=== PATIENT | female | born 1950 | race Caucasian/White ===

== ENCOUNTER → 2020-03-24 14:49 | Outpatient (CLI) | payer MEDICARE, SELFPAY ==
[2020-03-24 14:58] LABS: Basophils # 0.1 K/mm3 (0-0.2); Basophils % 0.7 % (0.1-2.0); Eosinophils # 0.8 K/mm3 (0.0-0.4); Eosinophils % 6.1 % (0.1-12.0); Hematocrit 40.8 % (37.0-47.0); Hemoglobin 13.4 g/dL (12.2-16.2); Lymphocytes # 5.7 K/mm3 (0.7-4.5); Lymphocytes % 42.2 % (10-50); Mean Corpuscular Hemoglobin 32.3 pg (27.0-31.2); Mean Corpuscular Volume 97.8 fl (81-99); Mean Platelet Volume 9.4 fl (7.4-10.4); Monocytes # 0.6 K/mm3 (0.1-1.0); Monocytes % 4.5 % (1.7-9.3); Neutrophils # 6.3 K/mm3 (1.8-7.8); Neutrophils % 46.4 % (37.0-80.0); Platelet Count 338 K/mm3 (142-424); Red Blood Count 4.17 M/mm3 (4.20-5.40); Red Cell Distribution Width 13.4 % (11.5-17.5); White Blood Count 13.6 K/mm3 (4.8-10.8)
[2020-03-24 15:06] LABS: Creatinine,Urine Random 125 mg/dL (Not Estab.)
[2020-03-24 15:11] LABS: Microalbumin/Creatinine Ratio 6.9
[2020-03-24 15:23] LABS: Hemoglobin A1C 7.6 % (4.0-6.0)
[2020-03-24 15:46] LABS: Alanine Aminotransferase 48 U/L (12-78); Albumin Level 4.4 g/dl (3.5-5.0); Albumin/Globulin Ratio 1.5 (1.1-1.8); Alkaline Phosphatase 117 U/L (38-126); Anion Gap 18.1 mEq/L (5-15); Aspartate Amino Transferase 65 U/L (14-36); Bilirubin,Total 0.4 mg/dl (0.2-1.3); Blood Urea Nitrogen 30 mg/dl (7-17); Calcium 10.8 mg/dl (8.4-10.2); Carbon Dioxide 27 mmol/L (22.0-30.0); Chloride 101 mmol/L (98-107); Chol/HDL Ratio 6.8 (1-3.5); Cholesterol 324 mg/dl (140-200); Estimated Glomerular Filt Rate 83 ml/min (>60); GFR (African American) 101 ML/MIN (>60); Glucose 152 mg/dl (74-100); HDL Cholesterol 48 mg/dl (40-60); Sodium 140 mmol/L (136-145); Total Protein,Serum 7.4 g/dl (6.3-8.2)
[2020-03-24 16:03] LABS: T4 (Thyroxine) 8.8 ug/dl (5.53-11.0)
[2020-03-24 16:25] LABS: Potassium 6.1 mmoL/L (3.5-5.1); Triglycerides 799 mg/dl (30-150)
== END ==
PROVIDERS: Visit Provider Family Medicine
DX: E11.9 Type 2 diabetes mellitus without complications (principal); E03.9 Hypothyroidism, unspecified; G89.29 Other chronic pain; M54.9 Dorsalgia, unspecified; M79.7 Fibromyalgia; Z79.84 Long term (current) use of oral hypoglycemic drugs
CPT/HCPCS: 80053; 80061; 82043; 82570; 83036; 84436; 84443; 85025

== ENCOUNTER → 2020-05-15 13:58 | Outpatient (CLI) | payer MEDICARE, SELFPAY ==
[2020-05-15 15:09] LABS: Chloride 92 mmol/L (98-107)
[2020-05-15 15:10] LABS: Potassium 5.2 mmoL/L (3.5-5.1); Sodium 138 mmol/L (136-145)
[2020-05-15 15:12] LABS: Blood Urea Nitrogen 31 mg/dl (7-17); Estimated Glomerular Filt Rate 62 ml/min (>60); GFR (African American) 75 ML/MIN (>60)
[2020-05-15 15:13] LABS: Alanine Aminotransferase 41 U/L (12-78); Albumin Level 4.4 g/dl (3.5-5.0); Albumin/Globulin Ratio 1.6 (1.1-1.8); Alkaline Phosphatase 63 U/L (38-126); Anion Gap 13.2 mEq/L (5-15); Aspartate Amino Transferase 43 U/L (14-36); Bilirubin,Total 0.4 mg/dl (0.2-1.3); Calcium 11.3 mg/dl (8.4-10.2); Carbon Dioxide 38 mmol/L (22.0-30.0); Chol/HDL Ratio 6.8 (1-3.5); Cholesterol 253 mg/dl (140-200); Globulin 2.8 g/dL (1.3-3.2); Glucose 170 mg/dl (74-100); HDL Cholesterol 37 mg/dl (40-60); Total Protein,Serum 7.2 g/dl (6.3-8.2)
[2020-05-15 15:24] LABS: Direct LDL Cholesterol 167.52 mg/dL (100-129)
[2020-05-15 15:36] LABS: Triglycerides 411 mg/dl (30-150)
== END ==
PROVIDERS: Visit Provider Family Medicine
DX: Z23 Encounter for immunization (principal); E03.9 Hypothyroidism, unspecified
CPT/HCPCS: 80053; 80061

== ENCOUNTER → 2020-07-31 17:51 | Outpatient (CLI) | payer MEDICARE, SELFPAY ==
[2020-07-31 19:03] LABS: Alanine Aminotransferase 46 U/L (12-78); Albumin Level 4.7 g/dl (3.5-5.0); Albumin/Globulin Ratio 1.7 (1.1-1.8); Alkaline Phosphatase 60 U/L (38-126); Aspartate Amino Transferase 49 U/L (14-36); Bilirubin,Total 0.4 mg/dl (0.2-1.3); Blood Urea Nitrogen 18 mg/dl (7-17); Carbon Dioxide 32 mmol/L (22.0-30.0); Chloride 98 mmol/L (98-107); Estimated Glomerular Filt Rate 62 ml/min (>60); GFR (African American) 75 ML/MIN (>60); Globulin 2.8 g/dL (1.3-3.2); Glucose 113 mg/dl (74-100); Sodium 139 mmol/L (136-145); Total Protein,Serum 7.5 g/dl (6.3-8.2)
[2020-07-31 19:06] LABS: Basophils # 0.1 K/mm3 (0-0.2); Basophils % 0.5 % (0.1-2.0); Eosinophils # 0.4 K/mm3 (0.0-0.4); Eosinophils % 3.6 % (0.1-12.0); Hematocrit 42.7 % (37.0-47.0); Hemoglobin 13.6 g/dL (12.2-16.2); Lymphocytes # 5.6 K/mm3 (0.7-4.5); Lymphocytes % 46.7 % (10-50); Mean Corpuscular HGB Conc 31.9 g/dL (31.8-35.4); Mean Corpuscular Hemoglobin 30.8 pg (27.0-31.2); Mean Corpuscular Volume 96.3 fl (81-99); Mean Platelet Volume 9.9 fl (7.4-10.4); Monocytes # 0.6 K/mm3 (0.1-1.0); Monocytes % 4.9 % (1.7-9.3); Neutrophils # 5.3 K/mm3 (1.8-7.8); Neutrophils % 44.4 % (37.0-80.0); Platelet Count 424 K/mm3 (142-424); Red Blood Count 4.43 M/mm3 (4.20-5.40); Red Cell Distribution Width 13.4 % (11.5-17.5)
[2020-07-31 19:16] LABS: Intact Parathyroid Hormone 13.8 pg/mL (7.5-53.5)
[2020-07-31 19:32] LABS: Hemoglobin A1C 7.8 % (4.0-6.0)
[2020-07-31 19:34] LABS: Thyroid Stimulating Hormone 2.36 uIU/mL (0.465-4.68)
[2020-08-01 11:03] LABS: Microalbumin/Creatinine Ratio 29.1
[2020-08-01 11:15] LABS: Creatinine,Urine Random 68 mg/dL (Not Estab.)
== END ==
PROVIDERS: Visit Provider Family Medicine
DX: E03.9 Hypothyroidism, unspecified (principal); E11.9 Type 2 diabetes mellitus without complications; I10 Essential (primary) hypertension; M79.7 Fibromyalgia; K43.2 Incisional hernia without obstruction or gangrene; Z79.84 Long term (current) use of oral hypoglycemic drugs
CPT/HCPCS: 80053; 82043; 82570; 83036; 83970; 84443; 85025

== ENCOUNTER → 2021-01-02 19:01 | Outpatient (CLI) | payer MEDICARE, SELFPAY ==
[2021-01-02 19:16] LABS: Chloride 96 mmol/L (98-107)
[2021-01-02 19:17] LABS: Potassium 4.1 mmoL/L (3.5-5.1); Sodium 139 mmol/L (136-145)
[2021-01-02 19:19] LABS: Alanine Aminotransferase 40 U/L (12-78); Aspartate Amino Transferase 60 U/L (14-36); Blood Urea Nitrogen 28 mg/dl (7-17); Estimated Glomerular Filt Rate 71 ml/min (>60); GFR (African American) 86 ML/MIN (>60)
[2021-01-02 19:20] LABS: Albumin/Globulin Ratio 1.9 (1.1-1.8); Alkaline Phosphatase 70 U/L (38-126); Anion Gap 16.1 mEq/L (5-15); Bilirubin,Total 0.5 mg/dl (0.2-1.3); Calcium 10.2 mg/dl (8.4-10.2); Carbon Dioxide 31 mmol/L (22.0-30.0); Globulin 2.6 g/dL (1.3-3.2); Glucose 116 mg/dl (74-100); Total Protein,Serum 7.6 g/dl (6.3-8.2)
[2021-01-02 19:52] LABS: Hemoglobin A1C 7.1 % (4.0-6.0)
== END ==
PROVIDERS: Visit Provider Family Medicine
DX: E11.9 Type 2 diabetes mellitus without complications (principal); Z79.84 Long term (current) use of oral hypoglycemic drugs
CPT/HCPCS: 80053; 83036

== ENCOUNTER → 2021-06-19 18:30 | Outpatient (CLI) | payer MEDICARE, SELFPAY ==
[2021-06-19 19:18] LABS: Basophils # 0.1 K/mm3 (0-0.2); Basophils % 0.8 % (0.1-2.0); Eosinophils # 0.4 K/mm3 (0.0-0.4); Eosinophils % 3.1 % (0.1-12.0); Hemoglobin 14.4 g/dL (12.2-16.2); Lymphocytes # 5.1 K/mm3 (0.7-4.5); Lymphocytes % 44.3 % (10-50); Mean Corpuscular Hemoglobin 30.7 pg (27.0-31.2); Mean Corpuscular Volume 95.8 fl (81-99); Mean Platelet Volume 10.2 fl (7.4-10.4); Monocytes # 0.5 K/mm3 (0.1-1.0); Monocytes % 4.3 % (1.7-9.3); Neutrophils # 5.5 K/mm3 (1.8-7.8); Neutrophils % 47.4 % (37.0-80.0); Platelet Count 558 K/mm3 (142-424); Red Cell Distribution Width 13.4 % (11.5-17.5); White Blood Count 11.6 K/mm3 (4.8-10.8)
[2021-06-19 19:47] LABS: Creatinine,Urine Random 152 mg/dL (Not Estab.)
[2021-06-19 19:50] LABS: Microalbumin/Creatinine Ratio 13.2
[2021-06-19 21:00] LABS: Alanine Aminotransferase 47 U/L (12-78); Albumin Level 4.9 g/dl (3.5-5.0); Albumin/Globulin Ratio 1.6 (1.1-1.8); Alkaline Phosphatase 64 U/L (38-126); Anion Gap 19.4 mEq/L (5-15); Aspartate Amino Transferase 71 U/L (14-36); Bilirubin,Total 0.4 mg/dl (0.2-1.3); Blood Urea Nitrogen 21 mg/dl (7-17); Calcium 10.9 mg/dl (8.4-10.2); Carbon Dioxide 31 mmol/L (22.0-30.0); Chloride 95 mmol/L (98-107); Estimated Glomerular Filt Rate 71 ml/min (>60); GFR (African American) 86 ML/MIN (>60); Glucose 92 mg/dl (74-100); Potassium 4.4 mmoL/L (3.5-5.1); Sodium 141 mmol/L (136-145); Total Protein,Serum 7.9 g/dl (6.3-8.2)
[2021-06-19 21:16] LABS: Hemoglobin A1C 7.2 % (4.0-6.0)
[2021-06-19 21:29] LABS: Thyroid Stimulating Hormone 1.99 uIU/mL (0.465-4.68)
== END ==
PROVIDERS: Visit Provider Family Medicine
DX: J32.9 Chronic sinusitis, unspecified (principal); N39.0 Urinary tract infection, site not specified; E11.9 Type 2 diabetes mellitus without complications; M79.7 Fibromyalgia; Z79.84 Long term (current) use of oral hypoglycemic drugs; B96.20 Unspecified Escherichia coli [E. coli] as the cause of diseases classified elsewhere
CPT/HCPCS: 80053; 82043; 82570; 83036; 84443; 85025; 87086; 87088; 87186

== ENCOUNTER → 2021-06-28 17:42 | Outpatient (CLI) | payer MEDICARE, SELFPAY ==
[2021-06-28 17:46] LABS: Microscopic, Urine URINE MICROSCOPIC (MICROSCOPIC)
[2021-06-28 19:44] LABS: Appearance,Urine CLEAR (Clear); Bilirubin,Urine Negative (Negative); Blood, Urine Negative (Negative); Color,Urine YELLOW (Yellow); Glucose,Urine (UA) 2+ (Negative); Ketones,Urine Negative (Negative); Leukocyte Esterase,Urine Negative (Negative); Nitrate,Urine Negative (Negative); Protein,Urine Negative (Negative); Specific Gravity, Urine 1.015 (1.005-1.030); Urobilinogen,Urine 0.2 EU/dl (0.2)
[2021-06-28 19:53] LABS: Squamous Epithelial Cell,Urine Occasional #/hpf (0-5); WBC,Urine Occasional #/hpf (0-3)
== END ==
PROVIDERS: Visit Provider Family Medicine
DX: N39.0 Urinary tract infection, site not specified (principal)
CPT/HCPCS: 81001

== ENCOUNTER → 2021-12-25 16:12 | Outpatient (CLI) | payer MEDICARE, SELFPAY ==
[2021-12-25 14:34] LABS: Hemoglobin A1C 8.4 % (4.0-6.0)
[2021-12-25 16:06] LABS: Chloride 97 mmol/L (98-107); Potassium 4.1 mmoL/L (3.5-5.1); Sodium 139 mmol/L (136-145)
[2021-12-25 16:08] LABS: Alanine Aminotransferase 43 U/L (12-78); Albumin Level 4.4 g/dl (3.5-5.0); Alkaline Phosphatase 62 U/L (38-126); Aspartate Amino Transferase 45 U/L (14-36); Bilirubin,Total 0.5 mg/dl (0.2-1.3); Blood Urea Nitrogen 26 mg/dl (7-17); Estimated Glomerular Filt Rate 71 ml/min (>60); GFR (African American) 86 ML/MIN (>60)
[2021-12-25 16:09] LABS: Albumin/Globulin Ratio 1.7 (1.1-1.8); Anion Gap 15.1 mEq/L (5-15); Calcium 10.3 mg/dl (8.4-10.2); Carbon Dioxide 31 mmol/L (22.0-30.0); Chol/HDL Ratio 5.6 (1-3.5); Cholesterol 231 mg/dl (140-200); Globulin 2.6 g/dL (1.3-3.2); Glucose 140 mg/dl (74-100); HDL Cholesterol 41 mg/dl (40-60); Triglycerides 238 mg/dl (30-150); VLDL Cholesterol 48 mg/dL (0-40)
[2021-12-25 16:20] LABS: Direct LDL Cholesterol 155.75 mg/dL (100-129)
[2021-12-25 16:40] LABS: Thyroid Stimulating Hormone 1.42 uIU/mL (0.465-4.68)
== END ==
PROVIDERS: PCP Family Medicine; Visit Provider Family Medicine
DX: E11.9 Type 2 diabetes mellitus without complications (principal); M79.89 Other specified soft tissue disorders; E03.9 Hypothyroidism, unspecified; M79.7 Fibromyalgia; Z79.84 Long term (current) use of oral hypoglycemic drugs
CPT/HCPCS: 80053; 80061; 83036; 84443

== ENCOUNTER → 2022-06-04 10:13 | Outpatient (CLI) | payer MEDICARE, SELFPAY ==
[2022-06-04 19:02] LABS: Basophils # 0.1 K/mm3 (0-0.2); Eosinophils # 0.3 K/mm3 (0.0-0.4); Eosinophils % 2.2 % (0.1-12.0); Hematocrit 37.2 % (37.0-47.0); Hemoglobin 12.2 g/dL (12.2-16.2); Lymphocytes # 5.9 K/mm3 (0.7-4.5); Lymphocytes % 44.1 % (10-50); Mean Corpuscular HGB Conc 32.9 g/dL (31.8-35.4); Mean Corpuscular Hemoglobin 29.8 pg (27.0-31.2); Mean Corpuscular Volume 90.5 fl (81-99); Mean Platelet Volume 9.2 fl (7.4-10.4); Monocytes # 0.6 K/mm3 (0.1-1.0); Monocytes % 4.8 % (1.7-9.3); Neutrophils # 6.4 K/mm3 (1.8-7.8); Neutrophils % 47.9 % (37.0-80.0); Platelet Count 633 K/mm3 (142-424); Red Blood Count 4.11 M/mm3 (4.20-5.40); Red Cell Distribution Width 15.7 % (11.5-17.5); White Blood Count 13.3 K/mm3 (4.8-10.8)
[2022-06-04 19:08] LABS: Creatinine,Urine Random 90 mg/dL (Not Estab.)
[2022-06-04 19:12] LABS: Microalbumin/Creatinine Ratio 29.1
[2022-06-04 19:13] LABS: Alanine Aminotransferase 19 U/L (12-78); Albumin Level 4.3 g/dl (3.5-5.0); Albumin/Globulin Ratio 1.3 (1.1-1.8); Alkaline Phosphatase 146 U/L (38-126); Anion Gap 20.2 mEq/L (5-15); Aspartate Amino Transferase 42 U/L (14-36); Bilirubin,Total 0.3 mg/dl (0.2-1.3); Blood Urea Nitrogen 38 mg/dl (7-17); Calcium 10.6 mg/dl (8.4-10.2); Carbon Dioxide 26 mmol/L (22.0-30.0); Chloride 94 mmol/L (98-107); Estimated Glomerular Filt Rate 55 ml/min (>60); GFR (African American) 66 ML/MIN (>60); Globulin 3.3 g/dL (1.3-3.2); Glucose 162 mg/dl (74-100); Magnesium 1.4 mg/dl (1.6-2.3); Potassium 5.2 mmoL/L (3.5-5.1); Sodium 135 mmol/L (136-145); Total Protein,Serum 7.6 g/dl (6.3-8.2)
== END ==
PROVIDERS: PCP Family Medicine; Visit Provider Family Medicine
DX: E11.69 Type 2 diabetes mellitus with other specified complication (principal); E83.42 Hypomagnesemia; Z79.84 Long term (current) use of oral hypoglycemic drugs
CPT/HCPCS: 80053; 82043; 82570; 83735; 85025

== ENCOUNTER → 2023-01-27 14:10 | Outpatient (CLI) | payer MEDICARE, SELFPAY ==
[2023-01-27 18:35] LABS: Alanine Aminotransferase 30 U/L (12-78); Albumin Level 4.6 g/dl (3.5-5.0); Albumin/Globulin Ratio 1.5 (1.1-1.8); Alkaline Phosphatase 103 U/L (38-126); Anion Gap 19.1 mEq/L (5-15); Aspartate Amino Transferase 46 U/L (14-36); Bilirubin,Total 0.3 mg/dl (0.2-1.3); Blood Urea Nitrogen 21 mg/dl (7-17); Calcium 10.5 mg/dl (8.4-10.2); Carbon Dioxide 30 mmol/L (22.0-30.0); Chloride 100 mmol/L (98-107); Chol/HDL Ratio 3.6 (1-3.5); Cholesterol 192 mg/dl (140-200); Estimated Glomerular Filt Rate 71 ml/min (>60); GFR (African American) 86 ML/MIN (>60); Glucose 133 mg/dl (74-100); HDL Cholesterol 54 mg/dl (40-60); Sodium 143 mmol/L (136-145); Total Protein,Serum 7.6 g/dl (6.3-8.2); Triglycerides 301 mg/dl (30-150); VLDL Cholesterol 60 mg/dL (0-40)
[2023-01-27 18:57] LABS: Hemoglobin A1C 8.6 % (4.0-6.0)
[2023-01-27 19:02] LABS: Basophils # 0.1 K/mm3 (0-0.2); Basophils % 0.6 % (0.1-2.0); Eosinophils # 0.2 K/mm3 (0.0-0.4); Eosinophils % 2.5 % (0.1-12.0); Hematocrit 47.6 % (37.0-47.0); Hemoglobin 14.9 g/dL (12.2-16.2); Lymphocytes # 4.4 K/mm3 (0.7-4.5); Lymphocytes % 44.6 % (10-50); Mean Corpuscular HGB Conc 31.3 g/dL (31.8-35.4); Mean Corpuscular Hemoglobin 29.1 pg (27.0-31.2); Mean Platelet Volume 9.8 fl (7.4-10.4); Monocytes # 0.5 K/mm3 (0.1-1.0); Monocytes % 4.5 % (1.7-9.3); Neutrophils # 4.8 K/mm3 (1.8-7.8); Neutrophils % 47.9 % (37.0-80.0); Platelet Count 357 K/mm3 (142-424); Red Blood Count 5.12 M/mm3 (4.20-5.40); Red Cell Distribution Width 13.3 % (11.5-17.5); White Blood Count 9.9 K/mm3 (4.8-10.8)
[2023-01-27 19:05] LABS: Thyroid Stimulating Hormone 0.77 uIU/mL (0.465-4.68)
[2023-01-27 19:32] LABS: Potassium 6.1 mmoL/L (3.5-5.1)
== END ==
PROVIDERS: PCP Family Medicine; Visit Provider Family Medicine
DX: Z85.43 Personal history of malignant neoplasm of ovary (principal); Z00.00 Encounter for general adult medical examination without abnormal findings; E11.69 Type 2 diabetes mellitus with other specified complication
CPT/HCPCS: 80053; 80061; 83036; 84443; 85025

== ENCOUNTER → 2023-05-22 23:27 | Outpatient (CLI) | payer MEDICARE, SELFPAY ==
[2023-05-22 18:30] LABS: Basophils # 0.1 K/mm3 (0-0.2); Basophils % 0.9 % (0.1-2.0); Eosinophils # 0.3 K/mm3 (0.0-0.4); Eosinophils % 2.3 % (0.1-12.0); Hematocrit 44.8 % (37.0-47.0); Hemoglobin 15.2 g/dL (12.2-16.2); Lymphocytes # 5.6 K/mm3 (0.7-4.5); Lymphocytes % 50.6 % (10-50); Mean Corpuscular HGB Conc 33.9 g/dL (31.8-35.4); Mean Corpuscular Hemoglobin 31.8 pg (27.0-31.2); Mean Corpuscular Volume 93.8 fl (81-99); Mean Platelet Volume 9.9 fl (7.4-10.4); Monocytes # 0.5 K/mm3 (0.1-1.0); Monocytes % 4.4 % (1.7-9.3); Neutrophils # 4.6 K/mm3 (1.8-7.8); Neutrophils % 41.8 % (37.0-80.0); Platelet Count 351 K/mm3 (142-424); Red Blood Count 4.78 M/mm3 (4.20-5.40); Red Cell Distribution Width 13.1 % (11.5-17.5)
[2023-05-22 18:34] LABS: Alanine Aminotransferase 26 U/L (12-78); Albumin Level 4.8 g/dl (3.5-5.0); Albumin/Globulin Ratio 1.5 (1.1-1.8); Alkaline Phosphatase 90 U/L (38-126); Anion Gap 16.8 mEq/L (5-15); Aspartate Amino Transferase 35 U/L (14-36); Bilirubin,Total 0.3 mg/dl (0.2-1.3); Blood Urea Nitrogen 34 mg/dl (7-17); Calcium 10.8 mg/dl (8.4-10.2); Carbon Dioxide 29 mmol/L (22.0-30.0); Chloride 99 mmol/L (98-107); Estimated Glomerular Filt Rate 71 ml/min (>60); GFR (African American) 86 ML/MIN (>60); Globulin 3.2 g/dL (1.3-3.2); Glucose 165 mg/dl (74-100); Potassium 4.8 mmoL/L (3.5-5.1); Sodium 140 mmol/L (136-145)
[2023-05-22 18:51] LABS: MANUAL DIFFERENTIAL MANUAL DIFFERENTIAL (MANUAL DIFF)
[2023-05-22 19:15] LABS: Lymphocytes % 53 % (10-50); Monocytes % 5 % (2-9); Neutrophils % 40 % (42-76); Total Cells Counted 100
[2023-05-22 19:16] LABS: Platelet Estimate Normal; RBC Morphology Normal
== END ==
PROVIDERS: PCP Family Medicine; Visit Provider Family Medicine
DX: E11.69 Type 2 diabetes mellitus with other specified complication; Z85.43 Personal history of malignant neoplasm of ovary
CPT/HCPCS: 80053; 84443; 85007; 85025

== ENCOUNTER 2023-09-11 23:03 | Outpatient (CLI) | payer MEDICARE, SELFPAY ==
[2023-09-11 19:02] LABS: Basophils # 0.1 K/mm3 (0-0.2); Basophils % 0.7 % (0.1-2.0); Eosinophils # 0.3 K/mm3 (0.0-0.4); Eosinophils % 2.7 % (0.1-12.0); Hematocrit 44.2 % (37.0-47.0); Hemoglobin 14.5 g/dL (12.2-16.2); Lymphocytes # 5.1 K/mm3 (0.7-4.5); Mean Corpuscular HGB Conc 32.7 g/dL (31.8-35.4); Mean Corpuscular Volume 94.6 fl (81-99); Mean Platelet Volume 9.6 fl (7.4-10.4); Monocytes # 0.4 K/mm3 (0.1-1.0); Monocytes % 3.7 % (1.7-9.3); Neutrophils # 5.9 K/mm3 (1.8-7.8); Neutrophils % 49.9 % (37.0-80.0); Platelet Count 315 K/mm3 (142-424); Red Blood Count 4.67 M/mm3 (4.20-5.40); Red Cell Distribution Width 13.1 % (11.5-17.5); White Blood Count 11.9 K/mm3 (4.8-10.8)
[2023-09-11 19:48] LABS: Alanine Aminotransferase 25 U/L (12-78); Albumin Level 4.1 g/dl (3.5-5.0); Albumin/Globulin Ratio 1.7 (1.1-1.8); Alkaline Phosphatase 72 U/L (38-126); Anion Gap 9.5 mEq/L (5-15); Aspartate Amino Transferase 27 U/L (14-36); Bilirubin,Total 0.3 mg/dl (0.2-1.3); Blood Urea Nitrogen 22 mg/dl (7-17); Carbon Dioxide 30 mmol/L (22.0-30.0); Chloride 104 mmol/L (98-107); Estimated Glomerular Filt Rate 62 ml/min (>60); GFR (African American) 75 ML/MIN (>60); Globulin 2.4 g/dL (1.3-3.2); Glucose 120 mg/dl (74-100); Potassium 4.5 mmoL/L (3.5-5.1); Sodium 139 mmol/L (136-145); Total Protein,Serum 6.5 g/dl (6.3-8.2)
[2023-09-11 20:15] LABS: Thyroid Stimulating Hormone 1.56 uIU/mL (0.465-4.68)
[2023-09-11 20:20] LABS: Hemoglobin A1C 7.8 % (4.0-6.0)
== END 2023-09-11 23:59 ==
LOC: LAB.DROPOF 23:04
PROVIDERS: PCP Family Medicine; Visit Provider Family Medicine
DX: E11.9 Type 2 diabetes mellitus without complications (principal); K43.2 Incisional hernia without obstruction or gangrene; Z79.84 Long term (current) use of oral hypoglycemic drugs; Z79.85 Long-term (current) use of injectable non-insulin antidiabetic drugs
CPT/HCPCS: 80053; 83036; 84443; 85025

== ENCOUNTER 2023-12-10 09:18 | Outpatient (CLI) | payer MEDICARE, SELFPAY ==
[2023-12-10 19:19] LABS: Basophils # 0.1 K/mm3 (0-0.2); Basophils % 0.5 % (0.1-2.0); Eosinophils # 0.1 K/mm3 (0.0-0.4); Eosinophils % 0.3 % (0.1-12.0); Hematocrit 44.7 % (37.0-47.0); Hemoglobin 14.2 g/dL (12.2-16.2); Lymphocytes # 2.3 K/mm3 (0.7-4.5); Lymphocytes % 14.5 % (10-50); Mean Corpuscular HGB Conc 31.7 g/dL (31.8-35.4); Mean Corpuscular Hemoglobin 30.7 pg (27.0-31.2); Mean Corpuscular Volume 96.8 fl (81-99); Mean Platelet Volume 10.8 fl (7.4-10.4); Monocytes # 0.4 K/mm3 (0.1-1.0); Monocytes % 2.5 % (1.7-9.3); Neutrophils # 12.9 K/mm3 (1.8-7.8); Neutrophils % 82.1 % (37.0-80.0); Platelet Count 361 K/mm3 (142-424); Red Blood Count 4.62 M/mm3 (4.20-5.40); Red Cell Distribution Width 13.2 % (11.5-17.5); White Blood Count 15.7 K/mm3 (4.8-10.8)
[2023-12-10 19:20] LABS: MANUAL DIFFERENTIAL MANUAL DIFFERENTIAL (MANUAL DIFF)
[2023-12-10 19:35] LABS: Alanine Aminotransferase 31 U/L (12-78); Albumin Level 4.8 g/dl (3.5-5.0); Albumin/Globulin Ratio 1.8 (1.1-1.8); Alkaline Phosphatase 74 U/L (38-126); Anion Gap 14.8 mEq/L (5-15); Aspartate Amino Transferase 31 U/L (14-36); Bilirubin,Total 0.4 mg/dl (0.2-1.3); Blood Urea Nitrogen 31 mg/dl (7-17); Calcium 10.7 mg/dl (8.4-10.2); Carbon Dioxide 27 mmol/L (22.0-30.0); Chloride 101 mmol/L (98-107); Estimated Glomerular Filt Rate 82 ml/min (>60); GFR (African American) 100 ML/MIN (>60); Globulin 2.6 g/dL (1.3-3.2); Glucose 221 mg/dl (74-100); Potassium 4.8 mmoL/L (3.5-5.1); Sodium 138 mmol/L (136-145); Total Protein,Serum 7.4 g/dl (6.3-8.2)
[2023-12-10 20:03] LABS: Thyroid Stimulating Hormone 0.28 uIU/mL (0.465-4.68)
[2023-12-10 20:20] LABS: Hemoglobin A1C 8.7 % (4.0-6.0)
[2023-12-10 20:27] LABS: Lymphocytes % 16 % (10-50); Monocytes % 4 % (2-9); Neutrophils % 80 % (42-76); Platelet Estimate Normal; RBC Morphology Normal; Total Cells Counted 100
== END 2023-12-10 23:59 | disposition home or self-care (01) ==
LOC: LAB.DROPOF 12-11 09:18
PROVIDERS: PCP Family Medicine; Visit Provider Family Medicine
DX: E11.69 Type 2 diabetes mellitus with other specified complication (principal); E11.9 Type 2 diabetes mellitus without complications; E03.9 Hypothyroidism, unspecified; Z79.84 Long term (current) use of oral hypoglycemic drugs; Z79.899 Other long term (current) drug therapy
CPT/HCPCS: 80053; 83036; 84443; 85007; 85025

== ENCOUNTER 2024-02-18 16:07 | Outpatient (CLI) | payer MEDICARE, SELFPAY ==
[2024-02-18 18:39] LABS: Hemoglobin A1C 8.2 % (4.0-6.0)
== END 2024-02-18 23:59 | disposition home or self-care (01) ==
LOC: LAB.DROPOF 02-19 09:16
PROVIDERS: PCP Family Medicine; Visit Provider Family Medicine
DX: E11.9 Type 2 diabetes mellitus without complications (principal); Z79.84 Long term (current) use of oral hypoglycemic drugs
CPT/HCPCS: 83036

== ENCOUNTER 2025-01-17 18:36 | Outpatient (CLI) | payer MEDICARE, SELFPAY ==
--- OUTSIDE RECORDS SUMMARY | 2019-09-13 05:30 | XMS_ITS | Continuity of Care Document ---
Author Organization [facility] o Address [address] [place] [address] Phone Care Team Providers Care Shovel Operator Name Role Phone Sarah JARAMILLO, Frans[place] Unavailable Unavailabl e Procedures Procedure Date Office/outpatient visit,[facility] 2019 X-ray exam lower spine 2-3 views 2019 Advance Directives Directive Yes / No Effective Date File Name No Information Encounters Encounter Description Practice Location Reason(s) For Visit Diagnoses Date Provider Providers Copied on Encounter Office/outpat ient visit,[facility] [place], [address] [place], [address], tel:[phone] [facility] No Information 0 Sarah Moody. [address] [place], [address], . tel:[phone] Specialist : Jamal Mabry MD, [address] [place] [address], [place], [address] . tel:[phone] Family History Family Member Type Diagnosis Age At Onset No Information Payers Payer name Insurance type Covered republican ID Authoriza tion(s) Hum[employer] Medicare - [id number] Social History Type Description Quantity Date Captured Comments Sex Female Smoking Status No Information Chief Complaint And Reason For Visit No Information Reason For Referral Reason For Referral No Information History Of Present Illness Encounter Date Complaint History Of Prese nt Illness No Information Functional Status Date Functional Assessmen t No Information Instructions Date Instruction Additional Infor mation No Information Assessments Type Assessment Date No Information Patient Care Teams Name Effective Dates (start - stop) Status Members No Information
--- OUTSIDE RECORDS SUMMARY | 2025-01-05 11:00 | XMS_ITS | Encounter Summary ---
Author Organization [facility] Address [address] [place] [address] Care Team Providers Care Prototype Machinist Name Role Phone Jamal Mabry MD Primary Care Provider Vignesh Sharma MD Unavailable [phone] Shama Buckley MD Unavailable [phone] Reason for Visit * Reason Comments Injections Depo 120 Rt side Encounter Details Date Type Department Care Team (Latest Contact Info) Description 01/05/2025 11:00 AM EDT Office Visit [facility] [address] [place] [address] Matilda Guadalupe MA Osteoarthritis of multiple joints, [...] Description 03/07/2025 2:40 PM EDT Office Visit [facility] [address] [place] [address] Shama Buckley MD [address] [place] [address] 03/31/2025 2:00 PM EDT Office Visit [facility] Nephrology [place] [address] [place] [address] Vignesh Sharma MD [address] [address] documented as of this encounter Visit Diagnoses [...] documented as of this encounter Care Teams Prototype Machinist Relationship Specialty Start Date End Date Jamal Mabry MD PCP - General 06/18/10 Vignesh Sharma MD [address] [address] Consulting Physician Internal Medicine-Nephrology 04/09/22 [place] [address] [place] [phone] Internal Medicine-Rheumatology 02/20/23 documented as of this encounter
--- OUTSIDE RECORDS SUMMARY | 2025-01-17 18:39 | XMS_ITS | Clinical Summary ---
Author Organization [facility] Address [address] [facility] [address] [place] [address] Phone Care Team Providers Care Emergency Specialist Name Role Phone Carlyn JARAMILLO, [facility] Conditions or Problems Problem Name Problem Code Onset Date Status Entry Date Provider Comment Standard Description Annotate FOLLOW-UP EXAMINATION FOLLOWING OTHER SURGERY Z09 (ICD-10-CM) 10/13 Active 10/13 Marietta Hale MA Encounter for follow-up examination after completed treatment for conditions other than malignant neoplasm LUMBAR RADICULOPATHY 315249036 (SNOMED CT) 09/06 Active 09/06 Alta Rodriguez MA Lumbar radiculopathy Medications Medication Instructions Start Date Stop Date Generic Name [facility] Provider HIBICLENS 4 % EXTERNAL LIQUID Wash the lower back and right buttock area the night prior to the surgery CHLORHEXIDINE GLUCONATE [id number] Wild Alcocer MD ADULT ASPIRIN LOW STRENGTH 81 MG ORAL TABLET DISINTEGRATING 1 daily Non-Sanchez ASPIRIN [id number] Alta Rodriguez MA SYNTHROID 50 MCG TABS 1 daily Non-Sanchez LEVOTHYROXINE SODIUM [id number] Alta Rodriguez MA FOLIC ACID 1 MG TABS 1 bid Non-Sanchez FOLIC ACID [id number] Alta Rodriguez MA PROTONIX 40 MG TBEC 1 daily Non-Sanchez PANTOPRAZOLE SODIUM [id number] Alta Rodriguez MA GEMFIBROZIL 600 MG TABS 1 bid Non-Sanchez GEMFIBROZIL [id number] Alta Rodriguez MA METOPROLOL TARTRATE 100 MG TABS 1 daily Non-Sanchez METOPROLOL TARTRATE [id number] Alta Rodriguez MA NORVASC 10 MG TABS 1 daily Non-Sanchez AMLODIPINE BESYLATE [id number] Alta Rodriguez MA METHOTREXATE 2.5 MG ORAL TABLET 1 per week -Sanchez METHOTREXATE SODIUM [id number] Alta Rodriguez MA GABAPENTIN 800 MG TABS 1 qid -Sanchez GABAPENTIN [id number] Alta Rodriguez MA TIZANIDINE HCL 2 MG TABS 1 tid -Sanchez TIZANIDINE HCL [id number] Alta Rodriguez MA CYMBALTA 60 MG CPEP 1 bid -Sanchez DULOXETINE HCL 86646084076 Alta Rodriguez MA CELEBREX 200 MG CAPS 1 daily -Sanchez CELECOXIB [id number] Alta Rodriguez MA ENDOCET 10-325 MG TABS 1 qid -Sanchez OXYCODONE-ACETAM INOPHEN [id number] Alta Rodriguez MA Medications Administered No information available. Allergies, Adverse Reactions, Alerts Allergy Name Reaction Description Start Date Severity Statu s Provider IBUPROFEN Critical Alta Coburn mons MA DOXYCYCLINE Critical Alta S immons MA ZITHROMAX Critical Alta Coburn mons MA VIBRAMYCIN Critical Alta Si mmons MA KEFLEX Critical Alta Coburn mons MA CEPHALEXIN Critical Alta Si mmons MA PENICILLIN Critical Alta Si mmons MA Results No information available. Plan of Care Type Date Detail Pending order X-Ray Thoracic A P & Lateral Procedures No information available. Vital Signs Date Name Value Unit Description BMI (Body Mass Index) 31.82 kg/m2 Bod y Mass Index (Ratio) BP Diastolic 74 mm[Hg] blood pressu re, diastolic BP Systolic 126 mm[Hg] blood pressur e, systolic Height 62 [in_us] height E&M Weight Measured 174 [lb_av] weight E& M Weight Measured 174 [lb_av] weight E& M Immunizations No information available. Advance Directives No information available.
--- OUTSIDE RECORDS SUMMARY | 2025-01-17 18:39 | XMS_ITS | Encounter Summary ---
Author Organization [place] [address] Care Team Providers Care Rug Repairer Name Role Phone Jamal Mabry MD Primary Care Provider Vignesh Sharma MD Unavailable [phone] Shama Buckley MD Unavailable [phone] Encounter Details Date Type Department Care Team (Late Contact Info) Description 08/13/2017 Orders Only [facility] [address] [facility] [address] [place] [address] Raymond Ortiz MD [address] [place] [address] Social History Tobacco Use Types Packs/Day Years Used Date Smoking Tobacco: Never Smokeless Tobacco: Never Alcohol Use Standard Drinks/Week Comments No 0 (1 standard drink = 0.6 oz pur e alcohol) Sexually Active Control Partners Comments Never Surgical [...] on file documented as of this encounter Plan of Treatment Upcoming Encounters Date Type Department Care Team (Late Contact Info) Description 03/07/2025 2:40 PM EDT Office [facility] [address] [place] [address] Shama Buckley MD [address] [place] [address] 03/31/2025 2:00 PM EDT Office Visit [facility] Nephrology [place] [address] [facility] [place] [address] Vignesh Sharma MD [address] [facility] [address] [place] [address] documented as of this encounter Procedures Procedure Name Priority Date/Time Associated Diagnosis Comments GMED COLONOSCOPY Routine 08/13/2017 11:0 0 AM EST documented in this encounter Results * GMED COLONOSCOPY (08/13/2017 11:00 AM EST) 08/13/2017 11:0 0 AM EST Impressions [facility] - 08/13/2017 11:17 AM EST Grade 2 internal hemorrhoids. Plan: Screening Colonoscopy in 10 years. This section is an excerpt of the full report. us Raymond Ortiz MD GI PROCEDURE ORDERABLES Fin al Result [facility] [address] [place] [address] documented in this encounter Visit Diagnoses Not on filedocumented in this encounter Additional Health Concerns Infection Onset Date Last Indicated Resolved Time R/O COVID-19 04/25/2022 04/25/2022 04/25/2022 9:51 AM EDT R/O COVID-19 05/17/2022 05/17/2022 05/17/2022 11:2 5 PM EDT documented as of this encounter Care Teams Rug Repairer Relationship Specialty Start Date End Date Jamal Mabry MD PCP - General 06/18/10 Vignesh Sharma MD [address] [facility] [address] [place] [address] Consulting Physician Internal Medicine-Nephrology 04/09/22 Shama Buckley MD [address] [place] [address] Internal Medicine-Rheumatology 02/20/23 documented as of this encounter
--- OUTSIDE RECORDS SUMMARY | 2025-01-17 18:40 | XMS_ITS | Referral Summary ---
Author Organization [facility] Address [address] [place] [address] [place] [address] Care Team Providers Care Machine Printer Hose Name Role Phone Unavailable Primary Care Provider Unavailabl e Social History Tobacco Use Types Packs/Day Years Used Date Smoking Tobacco: Never Assessed Comments Unknown Sex and Gender Information Value Date Recorded Sex Assigned at Not on file Legal Sex Female 10:28 PM EDT Gender Identity Not on file Sexual Orientation Not on file Plan of Treatment Not on file
--- OUTSIDE RECORDS SUMMARY | 2025-01-17 18:40 | XMS_ITS | Encounter Summary ---
Author Organization [facility] Address [address] [place] [address] Care Team Providers Care Coppersmith Apprentice Name Role Phone Jamal Mabry MD Primary Care Provider [phone] Vignesh Sharma MD Unavailable [phone] Shama Buckley MD Unavailable [phone] Reason for Visit * Reason Onset Date Comments Medication Refill 11/30/2024 Duloxetine 60m g Encounter Details Date Type Department Care Team (Late st Contact Info) Description 11/30/2024 Telephone [facility] [address] [place] [address] Carmela Kendrick MA Medication Refill (Duloxetine 60mg) Social History Tobacco Use Types Packs/Day Years [...] Date Author No 05/18/2022 4:00 PM EDT Shanae Denson RN documented in this encounter Ordered Prescriptions Prescription Sig Dispense Quantity Refills Last Filled Start Date End Date DULoxetine (CYMBALTA) 60 mg Oral Capsule, Delayed Release(E.C.)Indic ations:Fibromyalgi a,Postlaminectomy syndrome, lumbar region Take 1 Capsule by mouth 2 times daily. 180 Capsule 12/07/2024 documented in this encounter Miscellaneous Notes * Addendum Note - Carmela Kendrick MA - 12/07/2024 1:57 PM EDTAddended by: CARMELA KENDRICK on: 12/07/2024 01:57 PM Modules accepted: Orders * Telephone Encounter - Carmela Kendrick MA - 12/07/2024 1:55 PM EDT Pharmacy called and LVM for clinic requesting a refill of Duloxetine 60mg 1 PO BID. Previous requests declined as patient had appt 12/06/24 - patient cancelled 12/06/24 appt Notes from 06/07/25 appt state: continue Cymbalta 60 mg bid Medication refilled for 90 days - patient needs to keep February appt * Telephone Encounter - Carmela Kendrick MA - 11/30/2024 2:55 PM EDTSummary: Duloxetine 60mg declined - will refill @ appt Received paper fax request for Duloxetine 60mg Last refill 06/07/24 for 6 months - supply to last until 12/06/24 Patient has appt 12/06/24 - will refill @ appt. Medication declined documented in this encounter Plan of Treatment Upcoming Encounters Date Type Department Care Team (Late st Contact Info) Description 03/07/2025 2:40 PM EDT Office [facility] [address] [place] [address] Shama Buckley MD [address] [place] [address] 03/31/2025 2:00 PM EDT Office Visit [facility] Nephrology [place] [address] [facility] [place] [address] Vignesh Sharma MD [address] [address] documented as of this encounter Visit Diagnoses Diagnosis Fibromyalgia Mylagia and myositis, unspecified Postlaminectomy syndrome, lumbar region documented in this encounter Discontinued Medications Medication Sig Discontinue Reason Start Date End Da te DULoxetine (CYMBALTA) 60 mg Oral Capsule, Delayed Release(E.C.)Indications :Fibromyalgia,Postlamine ctomy syndrome, lumbar region Take 1 Capsule by mouth 2 times daily. Reorder 06/07/2024 12/07/2024 documented as of this encounter Additional Health Concerns Assessment Noted Time A fall risk assessment has been complete d for the patient 06/11/2022 10:35 AM EDT documented as of this encounter Care Teams Coppersmith Apprentice Relationship Specialty Start Date End Date Jamal Mabry MD PCP - General 06/18/10 Vignesh Sharma MD [address] [address] Consulting Physician Internal Medicine-Nephrology 04/09/22 Shama Buckley MD [address] [place] [address] Internal Medicine-Rheumatology 02/20/23 documented as of this encounter
--- OUTSIDE RECORDS SUMMARY | 2025-01-17 18:40 | XMS_ITS ---
Author Organization [facility] Address [address] [place] [address] Care Team Providers Care Engineer Byproduct Name Role Phone Jamal Mabry MD Primary Care Provider [phone] Active Problems Problem Noted Date Diagnosed Date DVT (deep venous thrombosis) 03/27/2015 Overview (05/15/2015): 03/28/15 doppler Right: Evidence for acute, occluding DVT is seen in one of the paired right posterior tibial veins. Evidence for acute, non-occluding DVT is seen in the right popliteal vein. Evidence for acute, occluding SVT is seen in a vessel in the lateral, distal calf. No evidence for DVT/SVT in remaining right lower extremity. Malignant neoplasm of both ovaries 03/14/2015 Cancer Staging:Clinical:FIGO Stage IIIB- Signed by Radha Owen CNP on 05/18/2018 Pathologic: Unsigned Overview (11/20/2018): Peritoneal Carcinomatosis * Hx of cervical cancer at age 29 found during prompted a partial hysterectomy. -(02/2015) Increasing abdominal girth prompted office visit -(03/13/15) CT A/P: Moderate ascites. Peritoneal carcinomatosis & diffuse omental caking, consistent w/metastatic disease, of unknown primary (Largest L pericolic gutter 3.2 x 1.6 cm) . Fatty, enlarged liver (22 cm). Distention of the gallbladder (10 x 5 cm). Hysterectomy. 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 -(03/28/15) In office paracentesis -Path: Peritoneal Fluid: POSITIVE FOR MALIGNANCY. Metastatic adenocarcinoma. The peritoenal fluid is cellular and contains numerous clusters of glandular cells consistent with metastatic adenocarcinoma. Immunostains were performed to ascertain the site of origin. The tumor cells are positive for cytokeratin (CK) 7, galectin-3 and PAX-8. They are negative for CK20, GATA3, mammaglobin, GCDFP, TTF-1, Napsin, and CDX2. The immunostains support a primary ovarian adenocarcinoma. -(03/28/15) BLE dopplers: Acute occluding DVT in one of paired Rt PTV.Acute non-occluding DVT in Rt Pop v.Acute occluding SVT in lateral distal calf. (pt started on lovenox) -(04/05/15) Initiated C1 of Carbo/Taxol AUC=6; CA 125: 4932.5 -(04/20/15) Port placement -(04/24/15) CA 125: 1633.2 -(04/27/15) Port removal d/t dehiscence/infection. -(05/03/15) CA 125: 456.2 -(05/10/15)-Genetics Referral: Appt. Pending. -(05/15/15) CA 125: 95.7 -(06/06/15) CA 125: 20.1 -(07/11/15) COMPLETE INTRA-ABDOMINAL CYTOREDUCTION; BILATERAL SALPINGO- OOPHORECTOMY, OMENTECTOMY, STAGING WITH LYMPH NODE DISSECTION, DEBULKING-infra and gastric colic omentum, resection: Omental fibroadipose tissue with metastatic high-grade serous carcinoma. Bilateral adnexa, resection: Bilateral atrophic ovaries with few benign simple inclusion cysts.Bilateral benign fallopian tubes with few benign paratubal cysts.Negative for malignancy. Pelvic peritoneum, stripping: Fragment of ovary with invasive high-grade serous carcinoma (3 x 2mm). Fibromuscular adipose tissue with metastatic high-grade serous carcinoma. Bowel nodule, biopsy: Fibrotic nodule with calcifications suggestive of therapy related changes. No viable malignant cells identified. Lymph Nodes Negative -(07/24/15) Resume Carbo/Taxol on 08/07/15-Cycle 4. Plan is for 2-3 more cycles -(08/07/15) Chemo changed to Taxotere due to worsening neuropathy -(08/29/15) Tx Held due to low platlets -(08/29/15) CA 125: 15.1 -(09/04/15) TX held due to low platelets RTC 1 wk CA 125: 14.3 -(09/11/15) Completed C6 of Carbo/Taxol (Docetaxel for cycles 5 and 6) CA 125: 14.0 -(11/20/15) CA 125: 11.7 -(02/19/16) CA 125: 14.0 -( CT A/p-No acute abnormalities are identified in the abdomen or pelvis. Complex periumbilical hernia, mildy increased in size, no containing a couple separate loops of small bowel. No visible complications as bowel obstruction. Several small to moderate size fat only containing ventral midline supraumbilical hernias. Hysterectomy as before. Interval decrease in size of the cystic mass of the right adnexa now measuring 5.0 cm in the larges dimension. Interval decrease in size is consistent with a benign process. Fatty, enlarged liver, stable. -(05/27/16) CA 125: 15.5 -(06/11/16) CT A/P- 3.5 cm low-density lesion along the right external iliac vessels is likely postsurgical. Otherwise, no evidence of intra-abdominal or intrapelvic metastatic disease. -(08/19/16) CA 125: 11.7 -(09/30/16) CA 125: 15.8 -(12/30/16) CA 125: 15.0 -(04/21/17) CA 125: 10.7 -(07/21/17) CA 125: 14.2 -(08/13/17) Colonoscopy: Protruding lesions, medium grade 2 internal hemorrhoids were noted. Patient has ventral hernias, which make colonoscopy somewhat difficult. She has seen some rectal bleeding, which was likely hemorrhoidal. No polyps seen. No treatment needed. -(09/25/17) MMG: Negative -(10/20/17) CA 125: 14.5 01/26/18: CA 125: 14.2 05/18/18 CA 125: 16.0 *Disposition: RTC 6 months w/CA 125 prior. Bronchitis 04/28/2007 Overview (05/11/2015): ICD-10 Transition Candidiasis of vulva and vagina 04/24/2007 Encounter for routine gynecological examination 04/24/2007 Overview (05/11/2015): ICD-10 Transition Allergic rhinitis 04/23/2007 Overview (05/11/2015): ICD-10 Transition Other and unspecified hyperlipidemia 04/23/2007 Essential hypertension 04/23/2007 Overview (05/11/2015): ICD-10 Transition Displacement of lumbar inter vertebral disc without myelopathy 04/23/2007 Overview (11/29/2011): s/p surgical repair Dr Johnson 02/14 Postmenopausal atrophic vaginitis 02/17/2007 Cystocele, midline 04/07/2006 Urinary incontinence 04/07/2006 Overview (05/11/2015): ICD-10 Transition Personal history of other ge nital system and obstetric disorders(V13.29) 04/07/2006 Current Treatment and Therapy Plans No current plan information found. Past Treatment and Therapy Plans ONCOLOGY TREATMENT Plan Name Start Date Discontinue Date Treatment Medications Discontinue Reason Plan Provider Cycles OP Crime Prevention Worker CARBOplatin AUC 5 / DOCEtaxel 04/05/20 15 07/21/2017 CARBOplatin (PARAPLATIN) chemo infusion (by AUC)DOCEtaxel ([id number]) chemo infusionDOCEtaxel (TAXOTERE)DOCEtaxeL (TAXOTERE) SolnPACLItaxel (TAXOL) chemo infusion Therapy Complete Bjorn Walker MD 6 of 6 cycles started Resolved Problems Problem Noted Date Diagnosed Date Resolved Date Ovarian cancer 07/11/2015 05/15/2018 Dehiscence of operative wound 05/03/2015 05/15/2018 Overview (05/03/2015): 9/23--patient on bactrim for infectious ppx, wound with 3 vicryl sutures placed 05/01, return to care on 05/08 for wound check Unsatisfactory cervical cytology smear 07/15/2007 05/15/2018 Postmenopausal bleeding 04/24/200712/2017
--- OUTSIDE RECORDS SUMMARY | 2025-01-17 18:40 | XMS_ITS | Encounter Summary ---
Author Organization [facility] Address [address] [place] [address] Care Team Providers Care Senior Gis Analyst Name Role Phone Jamal Mabry MD Primary Care Provider [phone] Vignesh Sharma MD Unavailable [phone] Shama Buckley MD Unavailable [phone] Reason for Visit * Reason Onset Date Comments Advice Only 01/04/2025 Encounter Details Date Type Department Care Team (Late st Contact Info) Description 01/04/2025 Telephone [facility] [place] [facility] [address] [place] [address] Theresa Gross MA Advice Only Social History Tobacco Use Types Packs/Day Years [...] Shanae Denson RN documented in this encounter Miscellaneous Notes * Telephone Encounter - Theresa Gross MA - 01/04/2025 4:40 PM EDT Patient scheduled in 01/05/25 at 11[address] ok per Dr. Buckley * Telephone Encounter - Shama Buckley MD - 01/04/2025 4:32 PM EDT ok * Telephone Encounter - Theresa Gross MA - 01/04/2025 4:27 PM EDT Patient called requesting an all over shot for 01/05/25. LCV: 06/07/24 Last Depo 09/15/24 120 IM Left upper gluteus NCV: 03/07/25 Is it ok to schedule her in for Depo 01/05/25? documented in this encounter Plan of Treatment Upcoming Encounters Date Type Department Care Team (Late st Contact Info) Description 03/07/2025 2:40 PM EDT Office Visit [facility] [address] [place] [address] Shama Buckley MD [address] [place] [address] 03/31/2025 2:00 PM EDT Office Visit [facility] Neph[facility] [place] [address] [place] [address] Vignesh Sharma MD [address] [place] [address] documented as of this encounter Visit Diagnoses Not on filedocumented in this encounter Additional Health Concerns Assessment Noted Time A fall risk assessment has been complete d for the patient 06/11/2022 10:35 AM EDT documented as of this encounter Care Teams Senior Gis Analyst Relationship Specialty Start Date End Date Jamal Mabry MD PCP - General 06/18/10 Vignesh Sharma MD [address] [place] [address] Consulting Physician Internal Medicine-Nephrology 04/09/22 Shama Buckley MD [address] [place] [address] Internal Medicine-Rheumatology 02/20/23 documented as of this encounter
--- OUTSIDE RECORDS SUMMARY | 2025-01-17 18:40 | XMS_ITS | Encounter Summary ---
Author Organization [facility] Address [address] [facility] [address] [place] [address] Care Team Providers Care Checker Loader Name Role Phone Jamal Mabry MD Primary Care Provider Vignesh Sharma MD Unavailable [phone] Shama Buckley MD Unavailable [phone] Reason for Visit * Reason Comments Medication Refill Encounter Details Date Type Department Care Team (Late st Contact Info) Description 12/22/2024 Refill [facility] Nephrology [place] [address] [facility] [address] [place] [address] Vignesh Sharma MD [address] [facility] [address] [place] [address] Medication Refill Social History Tobacco Use Types Packs/Day Years [...] Entry Date Author No 05/18/2022 4:00 PM KAVITHAT Shanae Denson RN documented in this encounter Ordered Prescriptions Prescription Sig Dispense Quantity Refills Last Filled Start Date End Date VITAMIN B-12 100 mcg Oral TabletIndications: Vitamin B12 deficiency TAKE ONE TABLET BY MOUTH EVERY MORNING 30 Tablet 2 12/22/2024 documented in this encounter Plan of Treatment Upcoming Encounters Date Type Department Care Team (Late st Contact Info) Description 03/07/2025 2:40 PM EDT Office Visit [facility] [address] [place] [address] Shama Buckley MD [address] [place] [address] 03/31/2025 2:00 PM EDT Office Visit [facility] Nephrology [place] [address] [facility] [place] [address] Vignesh Sharma MD [address] [address] documented as of this encounter Visit Diagnoses Diagnosis Vitamin B12 deficiency Other B-complex deficiencies documented in this encounter Discontinued Medications Medication Sig Discontinue Reason Start Date End Da te VITAMIN B-12 100 mcg Oral TabletIndications:Vitami n B12 deficiency TAKE ONE TABLET BY MOUTH EVERY MORNING 10/01/2024 12/22/2024 documented as of this encounter Additional Health Concerns Assessment Noted Time A fall risk assessment has been complete d for the patient 06/11/2022 10:35 AM EDT documented as of this encounter Care Teams Checker Loader Relationship Specialty Start Date End Date Jamal Mabry MD PCP - General 06/18/10 Vignesh Sharma MD [address] [address] Consulting Physician Internal Medicine-Nephrology 04/09/22 Shama Buckley MD [address] [place] [address] Internal Medicine-Rheumatology 02/20/23 documented as of this encounter
--- OUTSIDE RECORDS SUMMARY | 2025-01-17 18:40 | XMS_ITS | Clinical Summary ---
Author Organization [facility] Address [facility] [place] [address] Care Team Providers Care Pest Technician Name Role Phone Unavailable Primary Care Provider Unavailabl e Social History Tobacco Use Types Packs/Day Years Used Date Smoking Tobacco: Never Assessed Comments Unknown Sex and Gender Information Value Date Recorded Sex Assigned at Not on file Legal Sex Female 10:28 PM EDT Gender Identity Not on file Sexual Orientation Not on file Plan of Treatment Health Maintenance Due Date Last Done Comments Hepatitis C Screening 1950 DTap,Tdap,and Td (1 - Tdap) 01/13/1963 Mammogram Screening 1992 Colonoscopy 01/13/1997 Pneumococcal 50+ (1 of 1 - PCV) 01/13/2002 Shingrix (#1) 01/13/2002 DEXA Scan 01/13/2017 Influenza Vaccine (Season Ended) 2025 RSV Vaccine (60+ or ) (1 - 1-dose 75+ series) 01/13/2027 HPV Aged Out No longer eligi ble based on patient's age to complete this topic Meningococcal conjugate zana nt 4 (MCV4) Aged Out No longer eligible b ased on patient's age to complete this topic RSV Immunization (<20 months) Aged Out No longer eligible based on patient's age to complete this topic
--- OUTSIDE RECORDS SUMMARY | 2025-01-17 18:40 | XMS_ITS | Encounter Summary ---
Author Organization [facility] Address [address] [facility] [address] [place] [address] Care Team Providers Care Ground Water Contractor Name Role Phone Jamal Mabry MD Primary Care Provider Vignesh Sharma MD Unavailable [phone] Shama Buckley MD Unavailable [phone] Reason for Visit * Reason Comments Medication Refill Encounter Details Date Type Department Care Team (Late st Contact Info) Description 11/26/2024 Refill [facility] [address] [address] Vignesh Sharma MD [address] [facility] [address] [place], [place] [id number] Medication Refill Social History Tobacco Use Types [...] Refills Last Filled Start Date End Date JARDIANCE 25 mg Oral TabletIndications: Hypomagnesemia,Ess ential hypertension TAKE ONE TABLET BY MOUTH EVERY MORNING 90 Tablet 1 11/26/2024 documented in this encounter Plan of Treatment Upcoming Encounters Date Type Department Care Team (Late st Contact Info) Description 03/07/2025 2:40 PM EDT Office Visit [facility] [address] [place] [address] Shama Buckley MD [address] [place] [address] 03/31/2025 2:00 PM EDT Office Visit [facility] Nephrology [place] [address] [facility] [place] [address] Vignesh Sharma MD [address] [address] documented as of this encounter Visit Diagnoses Diagnosis Hypomagnesemia Disorders of magnesium metabolism Essential hypertension Unspecified essential hypertension documented in this encounter Discontinued Medications Medication Sig Discontinue Reason Start Date End Da te JARDIANCE 25 mg Oral TabletIndications:Hypomag nesemia,Essential hypertension TAKE ONE TABLET BY MOUTH EVERY MORNING 06/11/2024 11/26/2024 documented as of this encounter Additional Health Concerns Assessment Noted Time A fall risk assessment has been complete d for the patient 06/11/2022 10:35 AM EDT documented as of this encounter Care Teams Ground Water Contractor Relationship Specialty Start Date End Date Jamal Mabry MD PCP - General 06/18/10 Vignesh Sharma MD [address] [address] Consulting Physician Internal Medicine-Nephrology 04/09/22 Shama Buckley MD [address] [place] [address] Internal Medicine-Rheumatology 02/20/23 documented as of this encounter
--- OUTSIDE RECORDS SUMMARY | 2025-01-17 18:40 | XMS_ITS | Clinical Summary ---
Author Organization [facility] Address [address] [place] [id number] Care Team Providers Care Programmer Operator Numerical Control Name Role Phone Jamal Mabry MD Primary Care Provider [phone] Source Comments This information has been disclosed to you from confidential records protectedfrom disclosure by state law. You shall make no further disclosure of thisinformation without the specific, written, and informed release of theindividual to whom it pertains, or as otherwise permitted by law. A generalauthorization for the release of medical or other information is not sufficientfor the purposes of therelease of HIV test results or diagnoses. [id number] Allergies Active Allergy Reactions Criticality Noted Date Comments Moxifloxacin Anaphylaxis,Other (S ee Comments) High 09/24/2010 Hypertension Pt tolerated cipro in er 09/24/10 ok iv levaquin 09/24/10 Blueberry Hives,Swelling High 05/24/2019 Throat swelling Codeine Anaphylaxis,Other (S ee Comments) High 09/24/2010 Heart races Ibuprofen Swelling,Other (See Comments) 09/24/2010 Takes celebrex @ home Cephalexin Other (See Comments),Swelling 09/24/2010 Chest tightness, rash Nut Flavor Anaphylaxis High 09/25/2010 Pt allergy to all types of nuts Penicillins Rash,Dermatitis Low 09/24/2010 Doxycycline Calcium 09/24/2010 Azithromycin Swelling 09/24/2010 Medications gabapentin (NEURONTIN) 800 MG tablet Take 1 tablet (800 mg total) by mouth 4 times a day. Active leucovorin (WELLCOVORIN) 5 mg tablet Take 1 tablet (5 mg total) by mouth daily. Active albuterol 90 mcg/actuation Inhl inhaler Inhale 2 puffs into the lungs every 6 hours as needed for Wheezing. Active tiZANidine (ZANAFLEX) 2 MG capsule Take 1 capsule (2 mg total) by mouth 3 times a day as needed. Active DULoxetine (CYMBALTA) 60 MG capsuleIndications:P eritoneal carcinomatosis (CMS-HCC),Swelling of lower extremity Take 1 capsule (60 mg total) by mouth daily. 02/28/20 15 Active nystatin (MYCOSTATIN) 100,000 unit/mL suspensionIndication s:Peritoneal carcinomatosis (CMS-HCC),Swelling of lower extremity 03/24/20 15 Active spironolactone (ALDACTONE) 50 MG tabletIndications:Pe ritoneal carcinomatosis (CMS-HCC),Swelling of lower extremity Take 1 tablet (50 mg total) by mouth daily. 03/15/20 15 Active dicyclomine (BENTYL) 20 mg tabletIndications:Pe ritoneal carcinomatosis (CMS-HCC),Swelling of lower extremity Take 1 tablet (20 mg total) by mouth every 6 hours. Active dextromethorphan-gua ifenesin (MUCINEX DM) 30-600 mg per 12 hr tablet Take 1 tablet by mouth every 12 hours as needed. Active metoprolol tartrate (LOPRESSOR) 100 MG tablet Take 0.5 tablets (50 mg total) by mouth 2 times a day. 60 tablet 0 07/15/20 15 Active Additional Information Patient taking differently: 100 mgOralDaily, Reported on 07/12/2024 furosemide (LASIX) 20 MG tabletIndications:Ov vivek cancer, unspecified laterality (CMS-HCC),Peritoneal carcinomatosis (CMS-HCC) 0 05/08/20 16 Active metOLazone (ZAROXOLYN) 5 MG tabletIndications:Ov vivek cancer, unspecified laterality (CMS-HCC),Peritoneal carcinomatosis (CMS-HCC) Take 1 tablet (5 mg total) by mouth daily. 1 05/20/20 16 Active levothyroxine (SYNTHROID, LEVOTHROID) 88 MCG tablet Take 1 tablet (88 mcg total) by mouth daily. 0 06/26/20 17 Active mupirocin (BACTROBAN) 2 % ointment 0 06/03/20 17 Active traMADol (ULTRAM) 50 mg tablet Take 1 tablet (50 mg total) by mouth 3 times a day as needed. 07/14/20 17 Active diazePAM (VALIUM) 5 MG tablet Take 1 tablet (5 mg total) by mouth every 6 hours as needed for Anxiety. Active metroNIDAZOLE (FLAGYL) 500 MG tablet Take 1 tablet (500 mg total) by mouth 2 times a day. 10 tablet 10/21/19 18 Active sitagliptan (JANUVIA) 50 MG tablet Take 1 tablet (50 mg total) by mouth daily. Active multivitamin (THERAGRAN) tablet Take 1 tablet by mouth daily. Active Lactobac no.41/Bifidobact no.7 (PROBIOTIC-10 ORAL) Take by mouth. Activ e fenofibrate nanocrystallized (TRICOR) 145 MG tablet Take 1 tablet (145 mg total) by mouth daily. 03/27/20 20 Active hydroCHLOROthiazide (HYDRODIURIL) 25 MG tablet Take 1 tablet (25 mg total) by mouth daily. 04/07/20 20 Active atorvastatin (LIPITOR) 20 MG tablet Take 1 tablet (20 mg total) by mouth daily. Active carvediloL (COREG) 25 MG tablet Take 1 tablet (25 mg total) by mouth 2 times a day with meals. Active cyanocobalamin (VITAMIN B-12) 100 MCG tablet Take 1 tablet (100 mcg total) by mouth daily. Active aMILoride (MIDAMOR) 5 MG tablet Take 1 tablet (5 mg total) by mouth daily with breakfast. Active magnesium oxide (MAG-OX) 400 mg tablet Take 1 tablet (400 mg total) by mouth 3 times a day. Take 2 tablets three times daily Active apixaban (ELIQUIS) 5 mg Tab Take 1 tablet (5 mg total) by mouth 2 times a day. Active empagliflozin (JARDIANCE ORAL) Take by mouth. 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: plan for paracentesis in office [...] ge nital system and obstetric disorders(V13.29) 04/07/2006 Resolved Problems Problem Noted Date Diagnosed Date Resolved Date Ovarian cancer 07/11/2015 05/15/2018 Dehiscence of operative wound 05/03/2015 05/15/2018 Overview (05/03/2015): 05/03--patient on bactrim for infectious ppx, wound with 3 vicryl sutures placed 05/01, return to care on 05/08 for wound check Unsatisfactory cervical cytology smear 07/15/2007 05/15/2018 Postmenopausal bleeding 04/24/200712/2017 Immunizations Immunization Administration Dates Next Due Td 03/14/1998 dtP 04/23/2007 Family History Medical History Relation Comments Breast Cancer Neg Hx Colon Cancer Neg Hx Ovarian cancer Neg Hx Uterine Cancer Neg Hx Relation Status Comments Father Mother Social History Tobacco Use Types Packs/Day Years Used Date Smoking Tobacco: Former Cigarettes Smokeless Tobacco: Never Alcohol Use Standard Drinks/Week Comments No 0 (1 standard drink = 0.6 oz pur e alcohol) PHQ-2 Answer Date Recorded PHQ-2 Total Score 0 12/16/2022 Comments No Sex and Gender Information Value Date Recorded Sex Assigned at Not on file Legal Sex Female 8:22 PM EST Gender Identity Not on file Sexual Orientation Not on file Occupation Industry Job Start Date Job End Date Disabled Not on file Not on file Not on file Last Filed Vital Signs Vital Sign Reading Time Taken Comments Blood Pressure 162/74 07/12/2024 2:59 PM EST Pulse 61 07/12/2024 2:59 PM EST Temperature 36.5 C (97.7 F) 07/12/2024 2:59 PM EST Respiratory Rate 18 07/12/2024 2:59 PM EST Oxygen Saturation 90% 07/12/2024 2:59 PM EST Inhaled Oxygen Concentration 90% 07/12/2024 2 :59 PM EST Weight 74.6 kg (164 lb 6.4 oz) 07/12/2024 2:59 P M EST Height 154.9 cm (5' 1 ) 07/12/2024 2:59 PM EST Body Mass Index 31.06 07/12/2024 2:59 PM EST Plan of Treatment Health Maintenance Due Date Last Done Comments ASCVD Assessment 1950 Abnormal Colonoscopy Follow Up 1950 Cologuard (FIT-DNA) 01/13/1997 Colonoscopy 01/13/1997 Colorectal Cancer Screening (MyChart) 01/13/1997 Stool Testing (gFOBT) 01/13/1997 Immunization: Zoster (1 of 2) 01/13/2002 Osteoporosis Screening (DXA Scan) 01/13/2002 Immunization: RSV (Adult) (1 - Risk 60-74 years 1-dose series) 2012 Diabetes Screening 07/12/2016 07/12/2015 Renal Function/GFR 06/11/2017 06/11/2016, 0 09/11/2015, 09/04/2015, Additional history exists Mammogram (MyChart) 01/04/2023 01/04/2021 ( Performed Elsewhere) Depression Screening 12/17/2023 12/16/2022, 05/21/2021, 05/22/2020, Additional history exists Immunization: COVID-19 ( season) 2024 06/19/2023, 06/08/2021, 10/17/2020 Immunization: Influenza (MyC baez) (Season Ended) 2025 06/19/2023, 06/04/2022, 08/14/2020, Additional history exists Immunization: DTaP/Tdap/Td ( 5 - Td or Tdap) 12/26/2031 12/25/2021, 05/03/2021, 06/03/2017, Additional history exists Immunization: Pneumococcal Completed 07/19, 07/31/2020, 06/03/2017, Additional history exists Medical Devices Implanted Type Area Blackjack Pit Boss Device Identifier Shelf Expiration Date Model / Serial / Lot Prt Imp Cath Peel-Apart 9.6fr - [id number] Implanted:Qty: 1 on 04/20/2015 by Bjorn Walker MD at [facility] Main CatheterImp Left: Chest Wall BARD ACCESS 03/10/2019 [id number] / / [id number] Procedures Procedure Name Priority Date/Time Associated Diagnosis Comments BASIC METABOLIC PANEL Routine 06/11/2016 9:31 AM EDT HEMOGLOBIN A1C Routine 07/12/2015 4:05 AM EST from Last 3 Months or Most Recently Relevant to Health Maintenance Results * (ABNORMAL) Basic metabolic panel (06/11/2016 9:31 AM EDT) Sodium 139 133 - 146 mmol/L 06/11/2016 10:01 AM EDT [facility] Potassium 4.3 3.5 - 5.3 mmol/L 06/11/2016 10:01 AM EDT [facility] Chloride 100 98 - 110 mmol/L 06/11/2016 10:01 AM EDT [facility] CO2 28 21 - 33 mmol/L 06/11/2016 10:01 AM EDT [facility] Anion Gap 11 3 - 16 mmol/L [facility] BUN 42(H) 7 - 25 mg/dL 06/11/2016 10:01 AM EDT [facility] Creatinine 1.26 0.60 - 1.30 mg/dL 06/11/2016 10:01 AM EDT [facility] Glucose 125(H) 70 - 100 mg/dL 06/11/2016 10:01 AM EDT [facility] Calcium 10.3 8.6 - 10.3 mg/dL 06/11/2016 10:01 AM EDT [facility] Osmolality, Calculated 300 278 - 305 mOsm/kg [facility]/11[facility]2016 [facility] eGFR AA CKD-EPI 52 See note. 6 10:01 AM EDT [facility] eGFR NONAA CKD-EPI 45 See note. 06/11/2016 10:01 AM T [facility] Plasma specimen (specimen) 06/11/2016 9:31 AM EDT 06/11/2016 9:45 AM EDT [facility] - 06/11/2016 10:01 AM EDT As of 10/10/2015 the estimated GFR is calculated from serum creatinine using the Chronic Kidney Disease Epidemiology Collaboration (CKD-EPI) equation in patients 18 years and older. The reference range is >60 mL/min/1.73m2. eGFR values greater than 90 will be reported as >90mL/min/1.73m2. Reference: Dick , Nate LA, Giovani CH, Harrison YL, Shoaib AF, 3rd, Ting HI, et. al. A new equation to estimate glomerular filtration rate. Ethel Sales And Service Agent Med. 2009:150(9):604-12 us Bjorn Walker MD LAB BLOOD ORDERABLES Final Re sult Performing Organization Address City/State/[facility] Co de Phone Number [facility] [address] [facility] * (ABNORMAL) Hemoglobin A1c (07/12/2015 4:05 AM EST) Hemoglobin A1C 6.5(H) 4.8 - 6.4 % 07/12/2015 4:43 AM EST [facility] Comment: Hemoglobin (Hb) A1C Normal: 4.8 - 5.6% Increased Risk for Diabetes: 5.7 - 6.4% Diagnostic Diabetes: >/= 6.5% (Drawn on 2 separate occasions) Glycemic Control for Adults with Diabetes: <7.0% (DCCT / NGSP) Whole blood specimen (specimen) 07/12/2015 4:05 AM EST 07/12/2015 4:21 AM EST Kelly Rodriguez MD LAB BLOOD ORDERABLES Final Resul t Performing Organization Address [facility] Co de Phone Number [facility] [address] [facility]. [address] from Last 3 Months or Most Recently Relevant to Health Maintenance Insurance [employer] CHOICE PPO MEDICARE Advance Directives For more information, please contact: [phone] * Full Code (Latest Code Status on File) Date Activated Date Inactivated Comments 07/11/2015 11:42 AM 07/15/2015 3:13 PM Care Teams Programmer Operator Numerical Control Relationship Specialty Start Date End Date Jamal Mabry MD [address] [place] [address] [address] PCP - General Family Medicine 03/27/15
--- OUTSIDE RECORDS SUMMARY | 2025-01-17 18:40 | XMS_ITS ---
Author Organization [facility] Address [address] [place] [address] Phone Care Team Providers Care Tamale Machine Feeder Name Role Phone Jamal Mabry MD Primary Care Provider [phone] Vignesh Sharma MD Unavailable [phone] Shama Buckley MD Unavailable [phone] Active Problems Problem Noted Date Diagnosed Date Localized edema 03/25/2024 Recurrent ventral hernia 08/22/2022 Overview (08/22/2022): Added automatically from request for surgery [id number] Hyperkalemia 07/22/2022 Hypercalcemia 07/16/2022 Vitamin B12 deficiency 06/25/2022 Diarrhea due to malabsorption 05/23/2022 Mild protein-calorie malnutrition 05/23/2022 Generalized weakness 05/18/2022 Chronic diarrhea 05/18/2022 History of CVA (cerebrovascular accident) 2021 Pulmonary nodules 04/27/2022 Ischemic stroke of frontal lobe 04/27/2022 Acute ischemic stroke 04/26/2022 Encephalopathy 04/26/2022 History of ovarian cancer 04/12/2022 Paroxysmal atrial fibrillation 04/11/2022 Hypokalemia 04/06/2022 Hypomagnesemia 04/06/2022 Overview (06/03/2022): Suspected renal wasting and chronic. 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 Ischemic colitis 09/27/2013 Atrophic vaginitis 05/24/2011 Allergic rhinitis 04/23/2007 Overview (04/02/2022): ICD-10 Transition Essential hypertension 04/23/2007 Overview (04/02/2022): ICD-10 Transition Other and unspecified hyperlipidemia 04/23/2007 Urinary incontinence 04/07/2006 Overview (04/02/2022): ICD-10 Transition Current Treatment and Therapy Plans No current plan information found. Past Treatment and Therapy Plans Resolved Problems Problem Noted Date Diagnosed Date Resolved Date Complication of surgical procedure 04/02/2022 04/02/2022 ALEJANDRO (acute kidney injury) 04/02/2022 Leukocytosis 04/02/2022 04/27/2022 Severe sepsis 04/02/2022 04/27/2022
--- OUTSIDE RECORDS SUMMARY | 2025-01-17 18:40 | XMS_ITS | Clinical Summary ---
Author Organization [facility] Address [address] [place] [address] Phone Care Team Providers Care Pharmacy Resident Name Role Phone Jamal Mabry MD Primary Care Provider [phone] Vignesh Sharma MD Unavailable [phone] Shama Buckley MD Unavailable [phone] Allergies Active Allergy Reactions Criticality Noted Date Comments Blueberry Hives,Swelling High 05/24/2019 Throat swelling Cephalexin Swelling,Rash 09/24/2010 tolerate cefepime 04/01 Other reaction(s): Other (See Comments) Chest tightness, rash Ciprofloxacin (Bulk) 09/24/2011 Codeine Other (See Comments),Anaphylaxis, Palpitations High 09/24/2010 Heart races Heart races Grape Juice Other (See Comments) Low 09/16/2009 Ibuprofen Swelling 09/24/2010 Takes celebrex @ home Moxifloxacin Other (See Comments),Anaphylaxis High 09/24/2010 Hypertension Pt tolerated cipro in er 09/24/10 ok iv levaquin 09/24/10 Other reaction(s): Other (See Comments), Unknown Hypertension Pt tolerated cipro in er 09/24/10 ok iv levaquin 09/24/10 Nut Flavor Anaphylaxis High 09/25/2010 Pt allergy to all types of nuts Pt allergy to all types of nuts Penicillins Dermatitis,Rash Low 09/24/2010 Other reaction(s): RASH Doxycycline Calcium Other (See Comments) 2010 unknown Azithromycin Swelling 09/24/2010 Medications gabapentin (NEURONTIN) 800 mg tablet Take 800 mg by mouth 4 times daily. Active albuterol (PROVENTIL;VENT WEI) 90 mcg/Actuation inhaler Inhale 2 Puffs into the lungs every 6 hours as needed for Wheezing. Active LEVOthyroxine (SYNTHROID) 88 mcg Oral Tablet Take 88 mcg by mouth daily. morning Active fenofibrate (TRICOR) 145 mg Oral Tablet Take 145 mg by mouth daily. 03/14/20 22 Active traMADoL (ULTRAM) 50 mg Oral Tablet Take 50 mg by mouth every 6 hours as needed for Pain. Active magnesium oxide (MAG-OX) 400 mg (241.3 mg magnesium) Oral TabletIndicatio ns:Hypomagnesem ia Take 2 Tablets by mouth 3 times daily. 540 Tablet 2 06/13/20 22 Active diazePAM (VALIUM) 10 mg Oral Tablet Take by mouth every 6 hours as needed. Active OZEMPIC 0.25 mg or 0.5 mg (2 mg/3 mL) SubQ Pen Injector Subcutaneous (Inject under the skin) 0.5 mg once a week. 06/20/20 23 Active carvediloL (COREG) 25 mg Oral TabletIndicatio ns:Essential hypertension TAKE ONE TABLET BY MOUTH EVERY MORNING and TAKE ONE TABLET BY MOUTH EVERY EVENING 60 Tablet 11 03/19/20 24 Active atorvastatin (LIPITOR) 20 mg Oral Tablet TAKE ONE TABLET BY MOUTH AT BEDTIME 30 Tablet 11 03/19/20 24 Active ELIQUIS 5 mg Oral Tablet TAKE ONE TABLET BY MOUTH EVERY MORNING and TAKE ONE TABLET BY MOUTH EVERY EVENING 60 Tablet 11 03/19/20 24 Active glimepiride (AMARYL) 2 mg Oral Tablet Take 2 mg by mouth. Active albuterol (PROVENTIL HFA;VENTOLIN HFA) 90 mcg/actuation Inhl HFA Aerosol Inhaler INHALE one PUFF BY MOUTH FOUR TIMES DAILY NEEDED FOR SHORTNESS OF BREATH OR wheezing 02/24/20 24 Active Ketorolac Tromethamine 0.4 % Opht Drops STARTING THREE DAYS BEFORE surgery, instill one drop in THE operative eye FOUR TIMES DAILY FOR 10 DAYS THEN decrease TO TWICE DAILY FOR FOURTEEN DAYS 03/01/20 24 Active tiZANidine (ZANAFLEX) 2 mg Oral TabletIndicatio ns:Fibromyalgia ,Postlaminectom y syndrome, lumbar region Take 1 Tablet by mouth 3 times daily as needed. 180 Tablet 1 06/07/20 24 Active cefdinir (OMNICEF) 300 mg Oral Capsule Take by mouth 2 times daily. for 10 days 06/24/20 24 Active aMILoride (MIDAMOR) 5 mg Oral TabletIndicatio ns:Hypokalemia, Hypomagnesemia TAKE TWO TABLETS BY MOUTH EVERY MORNING 180 Tablet 2 07/12/20 24 Active NIFEdipine (PROCARDIA XL) 30 mg Oral Tablet Extended Rel 24 hrIndications:H ypomagnesemia,E ssential hypertension,Hy perkalemia,Hype rcalcemia TAKE ONE TABLET BY MOUTH EVERY MORNING 90 Tablet 2 09/03/19 25 Active JARDIANCE 25 mg Oral TabletIndicatio ns:Hypomagnesem ia,Essential hypertension TAKE ONE TABLET BY MOUTH EVERY MORNING 90 Tablet 1 11/27/19 25 Active DULoxetine (CYMBALTA) 60 mg Oral Capsule, Delayed Release(E.C.)In dications:Fibro myalgia,Postlam inectomy syndrome, lumbar region Take 1 Capsule by mouth 2 times daily. 180 Capsule 12/08/19 25 Active VITAMIN B-12 100 mcg Oral TabletIndicatio ns:Vitamin B12 deficiency TAKE ONE TABLET BY MOUTH EVERY MORNING 30 Tablet 2 12/23/19 25 Active VITAMIN B-12 100 mcg Oral TabletIndicatio ns:Vitamin B12 deficiency TAKE ONE TABLET BY MOUTH EVERY MORNING 30 Tablet 2 10/01/19 25 2024 Discontinued Hospital, Clinic, or Other Facility Administered Medication Ordered Dose Route Frequency Start Date End Date Status methylPREDNISolone acetate (DEPO-Medrol) injection 40 mgIndications:Osteoarthriti s of multiple joints, unspecified osteoarthritis type 40 mg IM ONCE 01/05/2025 01/05/2025 Ended methylPREDNISolone acetate (DEPO-Medrol) injection 80 mgIndications:Osteoarthriti s of multiple joints, unspecified osteoarthritis type 80 mg IM ONCE 01/05/2025 01/05/2025 Ended Active Problems Problem Noted Date Diagnosed Date Localized edema 03/25/2024 Recurrent ventral hernia 08/22/2022 Overview (08/22/2022): Added automatically from request for surgery [id number] Hyperkalemia 07/22/2022 Hypercalcemia 07/16/2022 Vitamin B12 deficiency [...] <0.5; CA 125: 3454; Lipase: 29 -(03/27/15) 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: plan for paracentesis in [...] Urinary incontinence 04/07/2006 Overview (04/02/2022): ICD-10 Transition Resolved Problems Problem Noted Date Diagnosed Date Resolved Date Complication of surgical procedure 04/02/2022 04/02/2022 ALEJANDRO (acute kidney injury) 04/02/2022 Leukocytosis 04/02/2022 04/27/2022 Severe sepsis 04/02/2022 04/27/2022 Encounters Date Type Department Care Team Description 01/05/2025 11:00 AM EDT Office Visit [facility] [address] [place] [address] Matilda Guadalupe MA Osteoarthritis of multiple joints, unspecified osteoarthritis type (Primary Dx); Rheumatoid arthritis, involving unspecified site, unspecified whether rheumatoid factor present (HCC) 01/04/2025 Telephone [facility] [address] [place] [address] Theresa Gross MA Advice Only 12/22/2024 Refill [facility] [place] [address] [place] [phone] Vignesh Sharma MD Medication Refill 11/30/2024 Telephone [facility] [address] [place] [address] Carmela Verduzco MA Medication Refill (Duloxetine 60mg) 11/26/2024 Refill [facility] [address] [facility] [address] [place] [address] Vignesh Sharma MD Medication Refill 11/05/2024 2:30 PM EDT Office Visit [facility] [place] [address] [place] [address] Vignesh Sharma MD Hypomagnesemia (Primary Dx); Essential hypertension; Vitamin B12 deficiency; Hypercalcemia; Localized edema; Chronic diarrhea 11/03/2024 4:05 PM EDT - 11/03/2024 11:59 PM EDT Hospital Encounter [facility] [address] [place] [address] Hypomagnesemia; Essential hypertension; Hypercalcemia; Vitamin B12 deficiency; Hyperkalemia Discharge Disposition: Home or Self Care 11/02/2024 Telephone [facility] [address] [place] [address] Carmela Verduzco MA Medication Refill (Duloxetine 60mg) from Last 3 Months Immunizations Immunization Administration Dates Next Due DTP 04/23/2007 Influenza High Dose 06/04/2022,05/15/2020 Influenza Intradermal 08/14/2020, 020,11/18/2019,05/25 Influenza Vaccine Quadrivalent 06/03/2017 Influenza Vaccine, Unspecifi ed Formulation 09/25/2010 PPD Test 04/13/2022,04/11/2022 Pneumococcal Conjugate Vacci ne 13 Valent 06/03/2017 Pneumococcal Patient Reported 06/09/2015 Pneumococcal Polysaccharide 23 Valent 07/19/2021 ,07/31/2020,09/25/2010 Quadrivalent Influenza High Dose 06/19/2023 Td, Unspecified Formulation 03/14/1998 Td, adult 12/25/2021 Tdap 05/03/2021,06/03/2017 Surgical History Surgery Date Site/Laterality Comments TUBAL LIGATION NOSE SURGERY 08/11/1994 deviated septum RECTAL SURGERY 08/11/2001 BACK SURGERY 08/11/2006 SKIN BIOPSY skin biopsy to R/O breast CA HYSTERECTOMY 08/11/1977 vaginal ovaries are in BLADDER SURGERY 08/11/2004 cystocele COLON SURGERY 04/02/2022 Abdomen/Right exploratory laparotomy with repair strangulated ventral hernia, right colectomy; Surgeon: Yifan Cross MD; Location: [facility]; Service: General ABDOMINAL EXPLORATION SURGERY 04/02/2022 Abdomen/N/A Surgeon: Yifan Cross MD; Location: [facility]; Service: General IR PICC INSERTION EQUAL OR > 5 YEARS 04/19/2022 IR PICC INSERTION EQUAL OR > 5 YEARS 04/19/2022 Dorina Mendoza PA-C [facility] SMALL INTESTINE SURGERY VENTRAL HERNIA REPAIR 09/27/2022 N/A Robotic repair recurrent ventral hernia with mesh; Surgeon: Yifan Cross MD; Location: [facility]; Service: Robotics Medical devices from this surgery are in the Medical Devices section. CATARACT REMOVAL 03/11/2024 - 04/10/2024 Bilateral Medical History Medical History Date Comments Hypertension Cancer (HCC) cervical Ca giselle emeli 33 yrs ago Asthma Heartburn Arthritis Diverticulitis Pneumonia 09/11/20092010 Hyperlipidemia Ischemic colitis, enteritis, or enterocolitis in 2001 Heart murmur Thyroid disease Diabetes mellitus (HCC) Urinary incontinence Malignant neoplasm of ovary (HCC) 2014 Strangulated ventral hernia 04/02/2022 Gananita reejohn Anxiety disorder takes Valium at home PRN TIA (transient ischemic attack) 04/2022 no deficits Urinary tract infection Family History Medical History Relation Name Comments Cancer Brother Renal, Lung Heart Attack Brother Hypertension Brother Other Brother blood clots in lung, legs Heart Attack Father Hypertension Father Heart Attack Mother Hypertension Mother Hypertension Sister Anesth Problems Neg Hx Relation Name Status Comments Brother Father Mother Sister Social History Tobacco Use Types Packs/Day Years Used Date Smoking Tobacco: Former Cigarettes Q uit: 08/11/2001 Smokeless Tobacco: Never Tobacco Cessation:Counseling Given: Yes Alcohol Use Standard Drinks/Week Comments No 0 [...] file Not on file Not on file Obstetrics History Para Term AB IAB SAB Ectopic Multiple Livin g Live Births 4 4 Date Outcome GA Total Labor Labor/2nd/3rd Weight Sex Type Anes PTL Deanna A1 A5 Name Clin Para Para Para Para Last Filed Vital Signs Vital Sign Reading Time Taken Comments Blood Pressure 146/73 11/05/2024 2:53 PM EDT Pulse 63 11/05/2024 2:53 PM EDT Temperature 35.8 C (96.4 F) 06/30/2024 3:00 PM EST Respiratory Rate 12 01/15/2024 7:47 PM EDT Oxygen Saturation 93% 01/15/2024 7:47 PM EDT Inhaled Oxygen Concentration - - Weight 74.8 kg (165 lb) 11/05/2024 2:53 PM EDT Height 154.9 cm (5' 1 ) 11/05/2024 2:53 PM EDT Body Mass Index 31.18 11/05/2024 2:53 PM EDT Plan of Treatment Upcoming Encounters Date Type Department Care Team (Late st Contact Info) Description 03/07/2025 2:40 PM EDT Office Visit [facility] [address] [place] [address] Shama Buckley MD [address] [place] [address] 03/31/2025 2:00 PM EDT Office Visit [facility] [place] [address] [facility] [place] [address] Vignesh Sharma MD [address] [place] [address] Health Maintenance Due Date Last Done Comments Wellness Exam Medicare 01/13/1953 Diabetic Eye Exam 01/13/1970 Hepatitis C Screening 01/13/1970 Cologuard 01/13/1997 FIT 01/13/1997 Sigmoidoscopy 01/13/1997 Virtual Colonography 01/13/1997 Zoster (1 of 2) 01/13/2002 RSV or 60+ (1 - Ris k 60-74 years 1-dose series) 2012 Lipids 04/27/2023 04/27/2022 COVID-19 Vaccine (2 - 2023-2 5 season) 2024 06/19/2023 Hemoglobin A1c 11/09/2024 05/11/2024, 03/12, 04/02/2022, Additional history exists Breast Cancer Screening 12/04/2024 12/05/19, 01/04/2021, 10/12/2019, Additional history exists Influenza Vaccine (Season Ended) 2025 06/19/2023, 06/04/2022, 08/14/2020, Additional history exists Microalbuminuria 11/03/2025 11/03/2024, 07/2024, 10/07/2023, Additional history exists Colon Cancer Screening 08/13/2027 Colonoscopy 08/13/2027 08/13/2017 DTaP/TDaP/Td (5 - Td or Tdap) 12/26/2031, 05/03/2021, 06/03/2017, Additional history exists Bone Density Screening Completed 06/20/2011 Pneumococcal Vaccine 50+ Completed 021, 07/31/2020, 06/03/2017, Additional history exists Hepatitis B Vaccine Aged Out No longe r eligible based on patient's age to complete this topic Meningococcal B Vaccine Aged Out No l onger eligible based on patient's age to complete this topic Medical Devices Implanted Type Area Environmental Sustainability Manager Device Identifier Shelf Expiration Date Model / Serial / Lot Kit Lead Surgical Artisan 2 X 8 70cm - [id number] Implanted:Qty: 1 on 10/02/2011 by Wild Alcocer MD at [facility] N/A: Thoracic 08/30/2013 SC-8216-70 / / [id number] [place] [employer] - [id number] Implanted:Qty: 2 on 10/02/2011 by Wild Alcocer MD at [facility] N/A: Spine Thoracic [place] [employer]NEUROMOD[employer]A TION 07/11/2013 SC-4316 / / [id number] Kit Generator Pulse Implantable - [id number] Implanted:Qty: 1 on 10/02/2011 by Wild Alcocer MD at [facility] Left: Buttocks [place] [employer]NEUR[employer] 08/11/2013 AR-1110-02 / [id number] / Mesh 6x8in Ellip Ventralt St Sepra Co-Knit Vntrl Prt Absb - [id number] Implanted:Qty: 1 on 09/27/2022 by Yifan Cross MD at [facility] N/A: Abdomen CR BARD:DAVOL [id number] 10/08/2023 [id number] / / [id number] Mesh 4.5in Cir Ventralt St Sepra Co-Knit Vntrl Prt Absb Ptch - [id number] Implanted:Qty: 1 on 09/27/2022 by Yifan Cross MD at [facility] N/A: Abdomen CR BARD:DAVOL [id number] 02/06/2024 [id number] / / [id number] Procedures Procedure Name Priority Date/Time Associated Diagnosis Comments URINALYSIS REFLEX Routine 11/03/2024 4:0 5 PM EDT Hypomagnesemia Essential hypertension CBC WITH DIFF Routine 11/03/2024 4:05 PM EDT Essential hypertension Vitamin B12 deficiency MAGNESIUM LEVEL Routine 11/03/2024 4:05 PM EDT Hypomagnesemia Essential hypertension Hyperkalemia RENAL FUNCTION PANEL Routine 11/03/2024 4:05 PM EDT Hypomagnesemia Essential hypertension Vitamin B12 deficiency Hyperkalemia Hypercalcemia VITAMIN D 25 HYDROXY Routine 11/03/2024 4:05 PM EDT Essential hypertension Hypercalcemia MICROALBUMIN/CREATIN INE RATIO URINE Routine 11/03/2024 4:05 PM EDT Hypomagnesemia Essential hypertension PARATHYROID HORMONE INTACT Routine 11/03/2024 4:05 PM EDT Essential hypertension Hypercalcemia UA W/REFLEX TO CULTURE Routine 11/03/2024 4:05 PM EDT Hypomagnesemia Essential hypertension EXTRA GARDNER URINE CX Routine 11/03/2024 4 :05 PM EDT Hypomagnesemia Essential hypertension HEMOGLOBIN A1C Routine 05/11/2024 3:27 PM EDT Type 2 diabetes mellitus with hyperglycemia, without long-term current use of insulin (HCC) MM MAMMO DIGITAL LIZ DIAGN BILAT Routine 12/04/2022 10:54 AM EDT Mass of left breast, unspecified quadrant Breast tenderness LIPID SCREEN Routine 04/27/2022 4:33 AM EDT GMED COLONOSCOPY Routine 08/13/2017 11:0 0 AM EST DX BONE DENSITY AXIAL SKELETON Routine 06/20/2011 10:00 AM EST Symptomatic menopausal or female climacteric states from Last 3 Months or Most Recently Relevant to Health Maintenance Results * (ABNORMAL) URINALYSIS REFLEX (11/03/2024 4:05 PM EDT) UA Color Light Yellow 11/03/2024 8:10 PM EDT [facility] UA Appear Clear Clear 11/03/2024 8:10 PM EDT [facility] UA Glucose 4+ (>1000mg/dL) (A) Negative mg/dL 11/03/2024 8:10 PM EDT [facility] UA Ketones Negative Negative mg/dL 11/03/2024 8:10 PM EDT [facility] UA Blood Negative Negative 11/03/2024 8:10 PM EDT [facility] UA pH 6.5 5.0 - 8.0 pH 11/03/2024 8:10 PM EDT [facility] UA Protein Negative Negative mg/dL 11/03/2024 8:10 PM EDT [facility] UA Urobilinogen Normal <=1 mg/dL 8:10 PM EDT [facility], [facility] UA Bili Negative Negative 11/03/2024 8:10 PM EDT [facility], [facility] UA Nitrite Negative Negative 11/03/2024 8:10 PM EDT [facility], [facility] UA Leuk Est Negative Negative 11/03/2024 8:10 PM EDT [facility], [facility] UA Spec Grav 1.022 1.001 - 1.035 no units 11/03/2024 8:10 PM EDT [facility] Comment:Reference range jimena d for random specimens only. Urine STRUCTURE OF URINARY TRACT PROPER / Unknown 11/03/2024 4:05 PM EDT 11/03/2024 4:24 PM EDT Vignesh Sharma MD URINE ORDERABLES Final Result Performing Organization Address [facility] Co de Phone Number [facility], [address], [place] [address] * EXTRA GARDNER URINE CX (11/03/2024 4:05 PM EDT) Urine STRUCTURE OF URINARY TRACT PROPER / Unknown 11/03/2024 4:05 PM EDT 11/03/2024 4:24 PM EDT Vignesh Sharma MD MICROBIOLOGY - GENERAL ORDERA BLES Final Result Performing Organization Address [facility] [place] [address] * VITAMIN D 25 HYDROXY (11/03/2024 4:05 PM EDT) Vit D 25 OH 37.4 30.0 - 150.0 ng/mL 11/03/2024 8:55 PM EDT [facility] Comment: Preferred: >= 30 ng/mL Insufficient: 21-29 ng/mL Deficient <= 20 ng/mL Possible Toxicity: >150 ng/mL Samples should not be taken from patients receiving therapy with high biotin doses (i.e. > 5 mg/day) until at least 8 hours following the last biotin administration. Blood VENOUS BLOOD / Unknown Venipuncture / Unknown 11/03/2024 4:05 PM EDT 11/03/2024 4:14 PM EDT Vignesh Sharma MD CHEMISTRY ORDERABLES Final Re sult Performing Organization Address [facility] de Phone Number [facility], [address] , [place] [address] * MICROALBUMIN/CREATININE RATIO URINE (11/03/2024 4:05 PM EDT) Urine Microalb <12.0 mg/L 11/03/2024 11:11 PM EDT [facility] Urine Creatinine 83.0 mg/dL 11/04/19 25 11:11 PM EDT [facility] Ur Microalb/Creat 025 11:11 PM EDT [facility] Comment: Because the albumin level is below the level of detection in this urine specimen, the laboratory is unable to calculate a reliable albumin/creatinine ratio. Microalbuminuria is unlikely if the urine albumin concentration is less than 20- 30 mg/L in a random specimen. Urine STRUCTURE OF URINARY TRACT PROPER / Unknown 11/03/2024 4:05 PM EDT 11/03/2024 4:24 PM EDT Vignesh Sharma MD URINE ORDERABLES Final Result Performing Organization Address [facility] de Phone Number [email or web address], [address] , [address] [place] [phone] * (ABNORMAL) CBC WITH DIFF (11/03/2024 4:05 PM EDT) WBC 12.1(H) 3.7 - 10.3 x10(3)/mc L 11/03/2024 8:55 PM EDT [facility] RBC 4.83 3.90 - 5.20 x10(6)/mc L 11/03/2024 8:55 PM EDT [facility] Hgb 14.5 11.2 - 15.7 g/dL 11/03/2024 8:55 PM EDT [facility] Hct 45.8(H) 34.0 - 45.0 % 11/03/2024 8:55 PM EDT [facility] MCV 94.8 80.0 - 100.0 fL 11/03/2024 8:55 PM EDT [facility] MCH 30.0 26.0 - 34.0 pg 11/03/2024 8:55 PM EDT [facility] MCHC 31.7 30.7 - 35.5 g/dL 11/03/2024 8:55 PM EDT [facility] RDW 12.6 <=14.9 % 11/03/2024 8:55 PM EDT [facility] Platelet 337 155 - 369 x10(3)/mc L 11/03/2024 8:55 PM EDT [facility] MPV 11.0 8.8 - 12.5 fL 11/03/2024 8:55 PM EDT [facility] Segs 53 % 11/03/2024 8:55 PM EDT [facility] Lymphs 33 % 11/03/2024 8:55 PM EDT [facility] Monos 4 % 11/03/2024 8:55 PM EDT [facility] Eos 2 % 11/03/2024 8:55 PM EDT [facility] Baso 1 % 11/03/2024 8:55 PM EDT [facility] Atyp Lymph 7 <=10 % 11/03/2024 8:55 PM EDT [facility] Neut # 6.4(H) 1.6 - 6.1 x10(3)/mc L 11/03/2024 8:55 PM EDT [facility] Lymph # 4.8(H) 1.2 - 3.9 x10(3)/mc L 11/03/2024 8:55 PM EDT [facility] [place] # 0.5 0.3 - 0.9 x10(3)/mc L 11/03/2024 8:55 PM EDT [facility] Eos # Manual 0.2 0.0 - 0.5 x10(3)/mc L 11/03/2024 8:55 PM EDT [facility] Baso # Manual 0.1 0.0 - 0.1 x10(3)/mc L 11/03/2024 8:55 PM EDT [facility] [place] [facility] RBC Morph Consistent with Red Cell Indices no units 11/03/2024 8:55 PM EDT [facility] [place] [facility] Blood VENOUS BLOOD / Unknown Venipuncture / Unknown 11/03/2024 4:05 PM EDT 11/03/2024 4:14 PM EDT us R Christoph Sharma MD HEMATOLOGY ORDERABLES Final R esult [facility] [place] [facility] [address] [facility] , [place] [address] * PARATHYROID HORMONE INTACT (11/03/2024 4:05 PM EDT) PTH Intact 33.50 15.00 - 65.00 pg/mL 11/03/2024 10:05 PM EDT [facility] [place] [facility] Blood VENOUS BLOOD / Unknown Venipuncture / Unknown 11/03/2024 4:05 PM EDT 11/03/2024 4:14 PM EDT Narrative [facility] [place] [facility] - 11/03/2024 10:05 PM EDT Intact PTH Calcium Interpretation ------- 15 - 65 8.6 - 10.2 Normal > 65 > 10.2 Primary Hyperparathyroidism < 20 > 10.2 Non-Parathyroid hypercalcemia < 15 < 8.6 Hypoparathyroidism Consider the above as guidelines only. PTH results should be interpreted in conjunction with the total or ionized calcium level. The finding of a persistently high-normal calcium accompanied by a high-normal PTH (or a low-normal calcium accompanied by a low-normal PTH) warrants further investigation. Although the PTH may itself be within normal limits, it may be inappropriately high (or low) relative to the circulating calcium level. Ingestion of heather doses of biotin (>5 mg/day) taken within 8 hours of drawing blood sample can interfere with this immunoassay test. Vignesh Sharma MD CHEMISTRY ORDERABLES Final Re sult Performing Organization Address [facility]/ZIP Co de Phone Number [facility] [address] [facility] , [address] [place], [place] [phone] * MAGNESIUM LEVEL (11/03/2024 4:05 PM EDT) Magnesium 2.0 1.6 - 2.4 mg/dL 11/03/2024 8:34 PM EDT [facility] Blood VENOUS BLOOD / Unknown Venipuncture / Unknown 11/03/2024 4:05 PM EDT 11/03/2024 4:14 PM EDT Vignesh Sharma MD CHEMISTRY ORDERABLES Final Re sult Performing Organization Address [facility] Co de Phone Number [facility] [address] [facility] , [address] [place] [phone] * RENAL FUNCTION PANEL (11/03/2024 4:05 PM EDT) Sodium 140 136 - 145 mmol/L 11/03/2024 8:34 PM EDT [facility] Potassium 4.4 3.5 - 5.0 mmol/L 11/03/2024 8:34 PM EDT [facility] Chloride 101 98 - 107 mmol/L 11/03/2024 8:34 PM EDT [facility] Total CO2 28 22 - 29 mmol/L 11/03/2024 8:34 PM EDT [facility] Anion Gap 11 7 - 16 mmol/L 11/03/2024 8:34 PM EDT [facility] Calcium 10.2 8.8 - 10.4 mg/dL 11/03/2024 8:34 PM EDT [facility] Glucose Lvl 95 70 - 99 mg/dL 11/03/2024 8:34 PM EDT [facility] BUN 21 8 - 23 mg/dL 11/03/2024 8:34 PM EDT [facility] Creatinine 0.84 0.51 - 1.30 mg/dL 11/03/2024 8:34 PM EDT [facility] Albumin 4.4 3.2 - 4.6 gm/dL 11/03/2024 8:34 PM EDT [facility] Phosphorus 2.9 2.5 - 4.5 mg/dL 11/03/2024 8:34 PM EDT [facility] eGFR (CKD-EPIcr 2020) 73 >=60 mL/min/1.7 3 m2 11/03/2024 8:34 PM EDT [facility] Comment:Estimated GFR was ca lculated using the CKD-EPIcr (2020) equation refit without race. The equation is recommended by the National Kidney Foundation - [place] [employer] Neph[employer] Task Force. Blood VENOUS BLOOD / Unknown Venipuncture / Unknown 11/03/2024 4:05 PM EDT 11/03/2024 4:14 PM EDT R Christoph Sharma MD CHEMISTRY ORDERABLES Final Re sult [facility] [address] [facility] , [place] [address] * (ABNORMAL) HEMOGLOBIN A1C (05/11/2024 3:27 PM EDT) Hgb A1C 9.5(H) 4.2 - 5.6 % 05/11/2024 7:58 PM EDT [facility], [facility] Est. Avg Glucose 226 mg/dL 05/11/2024 7:58 PM EDT [facility] Blood VENOUS BLOOD / Unknown Venipuncture / Unknown 05/11/2024 3:27 PM EDT 05/11/2024 3:27 PM EDT Narrative [facility] - 05/11/2024 7:58 PM EDT REFERENCE RANGE: Normal: 4.0-5.6% Pre-diabetes: 5.7-6.4% Provisional diagnosis of diabetes: >6.4% Hgb F>10% and anything which shortens red cell survival, such as hemolytic anemia, or unstable hemoglobin variants such as HbSS, HbSC, or HbCC, will lower the HbA1c value associated with a given level of glycemic control. us Peyman Carpio DPM CHEMISTRY ORDERABLES Fi nal Result [facility]REF[facility]ED [facility] [address] [facility], [place] [address] [facility] [address] [facility] [address] [place], [place] [id number] * MM MAMMO DIGITAL LIZ DIAGN BILAT (12/04/2022 10:54 AM EDT) Anatomical Region Laterality Modality Breast Bilateral Mammography 12/05/2022 8:05 AM EDT Impressions 12/05/2022 8:05 AM EDT Incomplete-need additional imaging evaluation ([id number]-8) ~ RECOMMENDATION: Ultrasound of the left breast. This ultrasound examination will be performed on the same date and reported separately. ~ DISCLAIMER * Any patient with a palpable abnormality, unexplained by breast imaging, should be managed on clinical basis by the attending physician. * Breast imaging has a false negative rate of 15%. * The patient was notified by mail of the results of this examination. *The patient's information was entered into a reminder system with a target due date for the next mammogram, in accordance with the [place] [employer] and the Society of Breast Imaging recommendations. Narrative 12/05/2022 8:05 AM EDT Procedure:MM MAMMO DIGITAL LIZ DIAGN BILAT ~ Reason for exam: clinical finding. Indicated problem(s): left breast palpable abnormality for 3 weeks. N63.20-Unspecified lump in the left breast, unspecified mmqsansv-CSF-99-CM N64.3-Kzskgxhquk-JCG-10-CM ~ MM MAMMO DIGITAL LIZ DIAGN BILAT Bilateral CC and MLO view(s) were taken. Prior study comparison: January 04, 2021, bilateral MM MAMMO DIG SCREEN CAD BILAT, performed at [facility]. October 12, 2019, bilateral MM MAMMO DIG SCREEN CAD BILAT, performed at [facility]. The breast tissue is heterogeneously dense. This may lower the sensitivity of mammography. Prior study comparison: Compared with prior studies, the most recent being 01/04/21, 10/12/19. The patient presents with a three-week history of a self detected palpable abnormality in the far lateral 3:00 left breast. A BB was placed on the skin overlying the area of concern and bilateral mammography obtained. There are stable loosely grouped coarse calcifications in the mid 8:00-9:00 right breast. No suspicious masses, pleomorphic calcifications or areas of distortion. Left ultrasound will be performed and reported separately. ~ Procedure Note Jennifer Javier MD - 12/05/2022 Procedure:MM MAMMO DIGITAL LIZ DIAGN BILAT ~ Reason for exam: clinical finding. Indicated problem(s): left breast palpable abnormality for 3 weeks. N63.20-Unspecified lump in the left breast, cdstwhvuynlbdqerbvk-WJD-43-CM N64.9-Xmadphozjn-WYG-10-CM ~ MM MAMMO DIGITAL LIZ DIAGN BILAT Bilateral CC and MLO view(s) were taken. Prior study comparison: January 04, 2021, bilateral MM MAMMO DIG SCREEN CAD BILAT, performed at [facility]. October 12, 2019, bilateralMM MAMMO DIG SCREEN CAD BILAT, performed at [facility]. The breast tissue is heterogeneously dense. This may lower thesensitivity of mammography. Prior study comparison: Compared with prior studies, the most recentbeing 01/04/21, 10/12/19. The patient presents with a three-week history of a self detectedpalpable abnormality in the far lateral 3:00 left breast. A BB was placed on the skin overlying the area of concern and bilateral mammography obtained. There are stable loosely grouped coarse calcifications in the mid8:00-9:00 right breast. No suspicious masses, pleomorphic calcifications or areasof distortion. Left ultrasound will be performed and reported separately. ~ IMPRESSION: Incomplete-need additional imaging evaluation (USZ-Hrurkqsr-7) ~ RECOMMENDATION: Ultrasound of the left breast. This ultrasound examination will be performed on the same date andreported separately. ~ DISCLAIMER * Any patient with a palpable abnormality, unexplained by breast imaging, should be managed on clinical basis by the attending physician. * Breast imaging has a false negative rate of 15%. * The patient was notified by mail of the results of this examination. *The patient's information was [facility] a [facility] system [facility], in accordance with the [place] [employer] and the Society of Breast Imaging recommendations. Jamal Mabry MD IMG MAMMOGRAPHY ORDERABLES Final Result * (ABNORMAL) LIPID SCREEN (04/27/2022 4:33 AM EDT) Cholesterol 208(H) <200 mg/dL 04/27/2022 2:42 PM EDT [facility] Comment: < 200 Desirable 200 - 239 Borderline High >= 240 High Triglyceride 329(H) <150 mg/dL 04/27/2022 2:42 PM EDT [facility] Comment: < 150 Normal 150 - 199 Borderline High 200 - 499 High >= 500 Very High HDL 38(L) >=40 mg/dL 04/27/2022 2:42 PM EDT [facility] Comment: > 60 Optimal 40 - 60 Acceptable < 40 Low LDL Calculated 113(H) <100 mg/dL 04/27/2022 2:42 PM EDT [facility] Comment: < 100 Optimal 100 - 129 Near or above optimal 130 - 159 Borderline High 160 - 189 High >= 190 Very High Non-HDL-C Calculated 170(H) <=129 mg/dL 04/27/2022 2:42 PM EDT [facility] Comment: <130 Desirable 130-159 Above Desirable 160-189 Borderline High 190-219 High >= 220 Very High Fasting Specimen? Yes None 022 2:42 PM EDT [facility] Blood BLOOD SAMPLE TAKEN FROM CENTRAL LINE / Unknown Venipuncture / Unknown 04/27/2022 4:33 AM EDT 04/27/2022 12:10 PM EDT Danisha Lewis MD CHEMISTRY ORDERABLES Final R esult [facility] [address] [facility], [place] [address] [facility] [address] [place] [address] * GMED COLONOSCOPY (08/13/2017 11:00 AM EST) 08/13/2017 11:0 0 AM EST Impressions [facility] - 08/13/2017 11:17 AM EST Grade 2 internal hemorrhoids. Plan: Screening Colonoscopy in 10 years. This section is an excerpt of the full report. us Raymond Ortiz MD GI PROCEDURE ORDERABLES Fin al Result [facility] [address] [place] [address] * DX BONE DENSITY AXIAL SKELETON (06/20/2011 10:00 AM EST) Anatomical Region Laterality Modality Dexa Scan Impressions 06/27/2011 8:40 AM EST : Bone mineral density is in the low bone density range. USEFULNESS OF THE SPINE MEASUREMENT IS LIMITED IN PATIENTS OVER THE AGE OF 70 DUE TO DEGENERATIVE BONY SCLEROSIS Following the Surgeon General's recommendations additional interventions are to include but not limited to drug therapy, physical therapy and nutrition counseling. The World Health Organization defines normal bone mass for postmenopausal women as a T-Score at or above -1, osteopenia as a T-Score between -1 and -2.5, osteoporosis as a T-Score at or below -2.5 and severe osteoporosis at or below -2.5 with a fracture. A patient's risk for fracture doubles for each standard deviation decline in bone density. Alta Macias PA-C / Ede Madrid M.D., EDUAR, CCD Narrative 06/27/2011 8:40 AM EST Bone densitometry was performed on [employer] No comparisons available. Patient's previous scan was done on a different model scanner and is not directly comparable. CLINICAL INDICATIONS: Patient is a postmenopausal woman with a history of estrogen deficiency, diuretics, back pain. BMD (g/cm2) T-SCORE Spine, L1-2 0.884 -0.9 Hip Neck, Left 0.676 -1.6 Hip Total, Left 0.844 -0.8 Hip Neck, Right 0.684 -1.5 Hip Total, Right 0.859 -0.7 1/3 Radius, Right 0.689 -0.1 Spine portion of the study is limited by artifact. Left Hip portion of the study is omitted due to calcification. FRAX - the ten year probability of fracture Major osteoporotic 15% Hip fracture 1.6% Procedure Note Ed Johnson R - 06/27/2011 Bone densitometry was performed on [employer] No comparisons available. Patient's previous scan was done on a different model scanner and is notdirectly comparable. CLINICAL INDICATIONS: Patient is a postmenopausal woman with a history of estrogen deficiency,diuretics, back pain. BMD (g/cm2) T-SCORE Spine, L1-2 0.884 -0.9 Hip Neck, Left 0.676 -1.6 Hip Total, Left 0.844 -0.8 Hip Neck, Right 0.684 -1.5 Hip Total, Right 0.859 -0.7 1/3 Radius, Right 0.689 -0.1 Spine portion of the study is limited by artifact. Left Hip portion of the study is omitted due to calcification. FRAX - the ten year probability of fracture Major osteoporotic 15% Hip fracture 1.6% IMPRESSION: Bone mineral density is in the low bone density range. USEFULNESS OF THE SPINE MEASUREMENT IS LIMITED IN PATIENTS OVER THE AGEOF 70 DUE TO DEGENERATIVE BONY SCLEROSIS Following the Surgeon General's recommendations additional interventionsare to include but not limited to drug therapy, physical therapy andnutrition counseling. The World Health Organization defines normal bone mass for postmenopausalwomen as a T-Score at or above -1, osteopenia as a T-Score between -1 and-2.5, osteoporosis as a T-Score at or below -2.5 and severe osteoporosisat or below -2.5 with a fracture. A patient's risk for fracture doublesfor each standard deviation decline in bone density. Alta Macias PA-C / Ede Madrid M.D., EDUAR, CCD Rashad Dutton MD IMG DEXA ORDERABLES Final R esult from Last 3 Months or Most Recently Relevant to Health Maintenance Insurance [employer] MEDICARE PPO MR MEDICARE PPO MR MEDICARE PPO MR MEDICARE PPO MR Advance Directives For more information, please contact: [phone] * Full Code (Latest Code Status on File) Date Activated Date Inactivated Comments 05/31/2022 11:40 AM 06/03/2022 6:28 PM * Full Code Date Activated Date Inactivated Comments 05/18/2022 12:03 AM 05/18/2022 9:53 PM * Full Code Date Activated Date Inactivated Comments 04/26/2022 6:54 PM 04/30/2022 1:53 AM * Full Code Date Activated Date Inactivated Comments 04/11/2022 4:21 PM 04/26/2022 5:54 PM * Full Code Date Activated Date Inactivated Comments 04/02/2022 6:22 AM 04/11/2022 4:13 PM Care Teams Pharmacy Resident Relationship Specialty Start Date End Date Jamal Mabry MD PCP - General 06/18/10 Vignesh Sharma MD [address] [address] Consulting Physician Internal Medicine-Nephrology 04/09/22 Shama Buckley MD [address] [place] [id number] Internal Medicine-Rheumatology 02/20/23
== END 2025-01-17 23:59 | disposition home or self-care (01) ==
LOC: LAB.DROPOF 18:37
PROVIDERS: PCP Family Medicine; Visit Provider Family Medicine
DX: N39.0 Urinary tract infection, site not specified (principal); A49.9 Bacterial infection, unspecified; E03.9 Hypothyroidism, unspecified; I10 Essential (primary) hypertension; E11.69 Type 2 diabetes mellitus with other specified complication
CPT/HCPCS: 80053; 83036

== ENCOUNTER 2025-01-17 19:07 | Outpatient (CLI) | payer MEDICARE, SELFPAY ==
--- OUTSIDE RECORDS SUMMARY | 2019-09-13 05:30 | XMS_ITS | Continuity of Care Document ---
Author Organization [facility] o Address [address] [place] [address] Phone Care Team Providers Care Puffer Tender Name Role Phone Sarah JARAMILLO, Frans[place] Unavailable Unavailabl e Procedures Procedure Date Office/outpatient visit,[facility] 2019 X-ray exam lower spine 2-3 views 2019 Advance Directives Directive Yes / No Effective Date File Name No Information Encounters Encounter Description Practice Location Reason(s) For Visit Diagnoses Date Provider Providers Copied on Encounter Office/outpat ient visit,[facility] [place], [address] [place], [address], tel:[phone] [facility] No Information 0 Sarah Moody. [address] [place], [address], . tel:[phone] Specialist : Jamal Mabry MD, [address] [place] [address], [place], [address] . tel:[phone] Family History Family Member Type Diagnosis Age At Onset No Information Payers Payer name Insurance type Covered constitution party ID Authoriza tion(s) Hum[employer] Medicare - [id number] Social History Type Description Quantity Date Captured [...]
--- OUTSIDE RECORDS SUMMARY | 2025-01-05 11:00 | XMS_ITS | Encounter Summary ---
Author Organization [facility] Address [address] [place] [address] Care Team Providers Care Surgical Brace Maker Name Role Phone Jamal Mabry MD Primary Care Provider [phone] Vignesh Shrama MD Unavailable [phone] Shama Buckley MD Unavailable [phone] Reason for Visit * Reason Comments Injections Depo 120 Rt side Encounter Details Date Type Department Care Team (Latest Contact Info) Description 01/05/2025 11:00 AM EDT Office Visit [facility] [address] [place] [address] Matilda Guadalupe MA Osteoarthritis of multiple joints, unspecified osteoarthritis type (Primary Dx); Rheumatoid arthritis, involving unspecified site, unspecified whether rheumatoid factor present (HCC) Social History Tobacco Use Types Packs/Day Years Used Date Smoking Tobacco: Former Cigarettes Q uit: 08/11/2001 Smokeless Tobacco: Never Alcohol Use Standard Drinks/Week Comments No 0 (1 standard drink = 0.6 oz pur e alcohol) rarely Overall Financial Resource Strain (CARDIA) Answe r Date Recorded How hard is it for you to pa y for the very basics like food, housing, medical care, and heating? Not hard at all 05/29/2022 Hunger Vital Sign Answer Date Recorded Within the past 12 months, y ou worried that your food would run out before you got the money to buy more. Never true 05/29/20 22 Within the past 12 months, t he food you bought just didn't last and you didn't have money to get more. Never true 05/29/2022 PRAPARE - Transportation Answer Date Re corded In the past 12 months, has l ack of transportation kept you from medical appointments or from getting medications? No 05/11 In the past 12 months, has l ack of transportation kept you from meetings, work, or from getting things needed for daily living? No 05/29/2022 Sexually Active Control Partners Comments Never Surgical Male Hyst Comments No Sex and Gender Information Value Date Recorded Sex Assigned at Not on file Legal Sex Female 5:54 AM EDT Gender Identity Not on file Sexual Orientation Not on file Occupation Industry Job Start Date Job End Date Not on file Not on file Not on file Not on file documented as of this encounter Functional Status * Is the person deaf or does he/she have serious difficulty hearing? Answer Date of Assessment Author No 05/18/2022 4:00 PM EDT Shanae Denson RN * Is the person blind or does he/she have serious difficulty seeing even when wearing glasses? Answer Date of Assessment Author No 05/18/2022 4:00 PM EDT Shanae Denson RN * Does this person have serious difficulty walking or climbing stairs? Answer Date of Assessment Author No 05/18/2022 4:00 PM EDT Shanae Denson RN * Does this person have difficulty dressing or bathing? Answer Date of Assessment Author No 05/18/2022 4:00 PM EDT Shanae Denson RN * Because of a physical, mental or emotional condition, does this person have difficulty doing errands alone such as visiting a doctor's office or shopping? Answer Date of Assessment Author No 05/18/2022 4:00 PM EDT Shanae Denson RN documented as of this encounter Mental Status * Because of a physical, mental or emotional condition, does this person have serious difficulty concentrating, remembering or making decisions? Answer Entry Date Author No 05/18/2022 4:00 PM EDT Skyler Denson RN documented in this encounter Progress Notes * Matilda Guadalupe MA - 01/05/2025 11:00 AM EDT Images from the original note were not included. Depo Medrol 120mg Approved by: dr buckley Approval date: 01/04/25 Theresa Gross MA 01/04/25 4:30 PM Note Patient called requesting an all over shot for 01/05/25. LCV: 06/07/24 Last Depo 09/15/24 120 IM Left upper gluteus NCV: 03/07/25 Is it ok to schedule her in for Depo 01/05/25? Shama Buckley MD to Theresa Gross MA 01/04/25 4:32 PM Note ok * Matilda Guadalupe MA - 01/05/2025 11:00 AM EDT Depo Medrol injection 120 mg IM in right upper gluteus muscle. Pt tolerated well. documented in this encounter Plan of Treatment Upcoming Encounters Date Type Department Care Team (Late st Contact Info) Description 03/07/2025 2:40 PM EDT Office Visit [facility] [address] [place] [address] Shama Buckley MD [address] [place] [address] 03/31/2025 2:00 PM EDT Office Visit [facility] Nephrology [place] [address] [place] [address] Vignesh Sharma MD [address] [address] documented as of this encounter Visit Diagnoses Diagnosis Osteoarthritis of multiple joints, unspecified osteoarthritis type- Primary Rheumatoid arthritis, involving unspecified site, unspecified whether rheumatoid factor present (HCC) documented in this encounter Administered Medications Inactive Administered Medications - up to 1 most recent administrations Medication Order MAR Action Action Date Dose Rate Site methylPREDNISolone acetate (DEPO-Medrol) injection 40 mg 40 mg, Intramuscular, ONCE, 1 dose, On Fri01/05/25 at 1130, Dx: 1. Osteoarthritis of multiple joints, unspecified osteoarthritis typeIndications:Osteoarthr itis of multiple joints, unspecified osteoarthritis type Given 01/05/2025 11:25 AM EDT 40 mg Right upper gluteus methylPREDNISolone acetate (DEPO-Medrol) injection 80 mg 80 mg, Intramuscular, ONCE, 1 dose, On 01/05/25 at 1130, Dx: 1. Osteoarthritis of multiple joints, unspecified osteoarthritis typeIndications:Osteoarthr itis of multiple joints, unspecified osteoarthritis type Given 01/05/2025 11:26 AM EDT 80 mg Right upper gluteus documented in this encounter Additional Health Concerns Assessment Noted Time A fall risk assessment has been complete d for the patient 06/11/2022 10:35 AM EDT documented as of this encounter Care Teams Surgical Brace Maker Relationship Specialty Start Date End Date Jamal Mabry MD PCP - General 06/18/10 Vignesh Sharma MD [address] [address] Consulting Physician Internal Medicine-Nephrology 04/09/22 [place] [address] [place] [phone] Internal Medicine-Rheumatology 02/20/23 documented as of this encounter
--- OUTSIDE RECORDS SUMMARY | 2025-01-17 19:10 | XMS_ITS | Clinical Summary ---
Author Organization [facility] Address [facility] [place] [address] Care Team Providers Care Multimedia Instructional Designer Name Role Phone Unavailable Primary Care Provider [...]
--- OUTSIDE RECORDS SUMMARY | 2025-01-17 19:10 | XMS_ITS | Clinical Summary ---
Author Organization [facility] Address [address] [place] [id number] Care Team Providers Care Director Of Manufacturing Name Role Phone Jamal Mabry MD Primary Care Provider [phone] Source Comments This information has been disclosed [...] therelease of HIV test results or diagnoses. [id number] Allergies Active Allergy Reactions Criticality Noted [...] <0.5; CA 125: 3454; Lipase: 29 -(03/27/15) Ladle Filler/onc office visit: plan for paracentesis in office [...] history exists Medical Devices Implanted Type Area Cableman Device Identifier Shelf Expiration Date Model / Serial / Lot Prt Imp Cath Peel-Apart 9.6fr - [id number] Implanted:Qty: 1 on 04/20/2015 by Bjorn Walker MD [facility] Main CatheterImp Left: Chest Wall BARD ACCESS 03/10/2019 [id number] / / [id number] Procedures Procedure Name Priority Date/Time Associated Diagnosis Comments BASIC METABOLIC PANEL Routine 06/11/2016 9:31 AM EDT HEMOGLOBIN A1C Routine 07/12/2015 4:05 AM EST from Last 3 Months or Most Recently Relevant to Health Maintenance Results * (ABNORMAL) Basic metabolic panel (06/11/2016 9:31 AM EDT) Sodium 139 133 - 146 mmol/L 06/11/2016 10:01 AM EDT [facility] Potassium 4.3 3.5 - 5.3 mmol/L 06/11/2016 10:01 AM EDT [facility] Chloride 100 98 - 110 mmol/L 06/11/2016 10:01 AM EDT [facility] CO2 28 21 - 33 mmol/L 06/11/2016 10:01 AM EDT [facility] Anion Gap 11 3 - 16 mmol/L [facility]/11[facility]2016 [facility] BUN 42(H) 7 - 25 mg/dL 06/11/2016 10:01 AM EDT [facility] Creatinine 1.26 0.60 - 1.30 mg/dL 06/11/2016 10:01 AM EDT [facility] Glucose 125(H) 70 - 100 mg/dL 06/11/2016 10:01 AM EDT [facility] Calcium 10.3 8.6 - 10.3 mg/dL 06/11/2016 10:01 AM EDT [facility] Osmolality, Calculated 300 278 - 305 mOsm/kg 06/11/2016 10:01 AM [facility] eGFR AA CKD-EPI 52 See note. 6 10:01 AM EDT [facility] eGFR NONAA CKD-EPI 45 See note. 06/11/2016 10:01 AM T [facility] Plasma specimen (specimen) 06/11/2016 9:31 AM EDT 06/11/2016 9:45 AM EDT [facility] - 06/11/2016 10:01 AM EDT As [...] equation to estimate glomerular filtration rate. [employer]. 2009:150(9):604-12 us Bjorn Walker MD LAB BLOOD ORDERABLES Final Re sult Performing Organization Address City/State/[facility] Co de Phone Number [facility] [address] [facility] * (ABNORMAL) Hemoglobin A1c (07/12/2015 4:05 [...] 4:05 AM EST 07/12/2015 4:21 AM EST Kelyl Rodriguez MD LAB BLOOD ORDERABLES Final Resul t Performing Organization Address [facility] Co de Phone Number [facility] [address] [facility] from Last 3 Months or Most Recently Relevant to Health Maintenance Insurance [employer] CHOICE PPO MEDICARE Advance Directives For more information, please contact: [phone] * Full Code (Latest Code Status on File) Date Activated Date Inactivated Comments 07/11/2015 11:42 AM 07/15/2015 3:13 PM Care Teams Director Of Manufacturing Relationship Specialty Start Date End Date Jamal Mabry MD [address] [place] [address] PCP - General Family Medicine 03/27/15
--- OUTSIDE RECORDS SUMMARY | 2025-01-17 19:10 | XMS_ITS | Clinical Summary ---
Author Organization 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 office visit: plan for paracentesis in office [...] Description 01/05/2025 11:00 AM EDT Office Visit [facility] [address] [place] [address] Matilda Guadalupe MA Osteoarthritis of multiple joints, unspecified osteoarthritis type (Primary Dx); Rheumatoid arthritis, involving unspecified site, unspecified whether rheumatoid factor present (HCC) 01/04/2025 Telephone [facility] [address] [place] [address] Theresa Gross MA Advice Only 12/22/2024 Refill [facility] Nephrology [place] [address] [place] [id number] Vignesh Sharma MD Medication Refill 11/30/2024 Telephone [facility] [address] [place] [address] Carmela Verduzco MA Medication Refill (Duloxetine 60mg) 11/26/2024 Refill [facility] [address] [place] [address] Vignesh Sharma MD Medication Refill 11/05/2024 2:30 PM EDT Office Visit [facility] Nephrology [place] [address] [place] [address] Vignesh Sharma MD Hypomagnesemia (Primary Dx); Essential hypertension; Vitamin B12 deficiency; Hypercalcemia; Localized edema; Chronic diarrhea 11/03/2024 4:05 PM EDT - 11/03/2024 11:59 PM EDT Hospital Encounter [facility] [address] [place] [address] Hypomagnesemia; Essential hypertension; Hypercalcemia; Vitamin B12 deficiency; Hyperkalemia Discharge Disposition: Home or Self Care 11/02/2024 Telephone [facility] [address] [place] [address] Carmela Verduzco MA Medication Refill (Duloxetine 60mg) [...] [facility] [address] [place] [address] Shama Buckley MD [address] [place] [address] 03/31/2025 2:00 PM EDT Office Visit [facility] Nephrology [place] [address] [facility] [place] [address] Vignesh Sharma MD [address] [facility] [place] [address] Health Maintenance Due Date Last [...] this topic Medical Devices Implanted Type Area Power Marketer Device Identifier Shelf Expiration Date Model / Serial / Lot Kit Lead Surgical Artisan 2 X 8 70cm - [id number] Implanted:Qty: 1 on 10/02/2011 by Wild Alcocer MD at [facility] N/A: Thoracic 08/30/2013 SC-8216-70 / / [id number] [place] Click Precision - [id number] Implanted:Qty: 2 on 10/02/2011 by Wild Alcocer MD at [facility] N/A: Spine Thoracic [place] SCI:NEUROMODULA TION 07/11/2013 SC-4316 / / [id number] Kit Generator Pulse Implantable - [id number] Implanted:Qty: 1 on 10/02/2011 by Wild Alcocer MD at [facility] Left: Buttocks [place] SCI:NEUROMODULA TION 08/11/2013 CA-1110-02 / [id number] / Mesh 6x8in Ellip Ventralt St Sepra Co-Knit Vntrl Prt Absb - [id number] Implanted:Qty: 1 on 09/27/2022 by Yifan Cross MD at [facility] N/A: Abdomen CR BARD:DAVOL [id number] 10/08/2023 [id number] / / [id number] Mesh 4.5in Cir Ventralt [address] Sepra Co-Knit Vntrl Prt Absb Ptch - [id number] Implanted:Qty: 1 on 09/27/2022 by Yifan Cross MD at [facility] N/A: Abdomen CR BARD:DAVOL [id number] 02/06/2024 [id number] / / [id number] Procedures Procedure Name Priority Date/Time Associated Diagnosis [...] 11/03/2024 8:10 PM EDT [facility] UA Appear Clear Clear 11/03/2024 8:10 PM EDT [facility] UA Glucose 4+ (>1000mg/dL) (A) Negative mg/dL 11/03/2024 8:10 PM EDT [facility] UA Ketones Negative Negative mg/dL 11/03/2024 8:10 PM EDT [facility] UA Blood Negative Negative 11/03/2024 8:10 PM EDT [facility] UA pH 6.5 5.0 - 8.0 pH 11/03/2024 8:10 PM EDT [facility] UA Protein Negative Negative mg/dL 11/03/2024 8:10 PM EDT [facility] UA Urobilinogen Normal <=1 mg/dL 8:10 PM EDT [facility] UA Bili Negative Negative 11/03/2024 8:10 PM EDT [facility] UA Nitrite Negative Negative 11/03/2024 8:10 PM EDT [facility] UA Leuk Est Negative Negative 11/03/2024 8:10 PM EDT [facility] UA Spec Grav 1.022 1.001 - 1.035 no units 11/03/2024 8:10 PM EDT [facility] Comment:Reference range jimena d for random specimens only. Urine STRUCTURE OF URINARY TRACT PROPER / Unknown 11/03/2024 4:05 PM EDT 11/03/2024 4:24 PM EDT Vignesh Sharma MD URINE ORDERABLES Final Result Performing Organization Address [facility] Co de Phone Number [facility], [address], [place] [address] * EXTRA AGRDNER URINE CX (11/03/2024 4:05 PM EDT) Urine STRUCTURE OF URINARY TRACT PROPER / Unknown 11/03/2024 4:05 PM EDT 11/03/2024 4:24 PM EDT Vignesh Sharma MD MICROBIOLOGY - GENERAL ORDERA BLES Final Result Performing Organization Address [facility] [place] [address] * VITAMIN D 25 HYDROXY (11/03/2024 4:05 PM EDT) Vit D 25 OH 37.4 30.0 - 150.0 ng/mL 11/03/2024 8:55 PM EDT [facility] Comment: Preferred: >= 30 ng/mL Insufficient: 21-29 [...] ORDERABLES Final Re sult Performing Organization Address [facility] de Phone Number [facility], [address] , [place] [address] * MICROALBUMIN/CREATININE RATIO URINE (11/03/2024 4:05 PM EDT) Urine Microalb <12.0 mg/L 11/03/2024 11:11 PM EDT [facility] Urine Creatinine 83.0 mg/dL 11/04/19 25 11:11 PM EDT [facility] Ur Microalb/Creat 025 11:11 PM EDT [facility] Comment: Because the albumin level is below [...] URINE ORDERABLES Final Result Performing Organization Address [facility] de Phone Number [email or web address], [address] , [address] [place] [phone] * (ABNORMAL) CBC WITH DIFF (11/03/2024 4:05 PM EDT) WBC 12.1(H) 3.7 - 10.3 x10(3)/mc L 11/03/2024 8:55 PM EDT [facility] RBC 4.83 3.90 - 5.20 x10(6)/mc L 11/03/2024 8:55 PM EDT [facility] Hgb 14.5 11.2 - 15.7 g/dL 11/03/2024 [...] 8:55 PM EDT [facility] Briscoe # 0.5 0.3 - 0.9 x10(3)/mc L 11/03/2024 8:55 PM EDT [facility] Eos # Manual 0.2 0.0 - 0.5 x10(3)/mc L 11/03/2024 8:55 PM EDT [facility] Baso # Manual 0.1 0.0 - 0.1 x10(3)/mc L 11/03/2024 8:55 PM EDT [facility] RBC Morph Consistent with Red Cell Indices no units 11/03/2024 8:55 PM EDT [facility] Blood VENOUS BLOOD / Unknown Venipuncture / Unknown 11/03/2024 4:05 PM EDT 11/03/2024 4:14 PM EDT us R Christoph Sharma MD HEMATOLOGY ORDERABLES Final R esult [facility] [address] [facility] , [place] [address] * PARATHYROID HORMONE INTACT (11/03/2024 4:05 PM EDT) PTH Intact 33.50 15.00 - 65.00 pg/mL 11/03/2024 10:05 PM EDT [facility] Blood VENOUS BLOOD / Unknown Venipuncture / Unknown 11/03/2024 4:05 PM EDT 11/03/2024 4:14 PM EDT Narrative [facility] - 11/03/2024 10:05 PM EDT Intact PTH [...] ORDERABLES Final Re sult Performing Organization Address [facility]/ZIP Co de Phone Number [facility] [address] [facility] , [address] [place], [place] [id number] * MAGNESIUM LEVEL (11/03/2024 4:05 PM EDT) Magnesium 2.0 1.6 - 2.4 mg/dL 11/03/2024 8:34 PM EDT [facility] Blood VENOUS BLOOD / Unknown Venipuncture / Unknown 11/03/2024 4:05 PM EDT 11/03/2024 4:14 PM EDT Vignesh Sharma MD CHEMISTRY ORDERABLES Final Re sult Performing Organization Address [facility] Co de Phone Number [facility] [address] [facility] , [address] [place] [phone] * RENAL FUNCTION PANEL (11/03/2024 4:05 PM [...] - 1.30 mg/dL 11/03/2024 8:34 PM EDT [facility] Albumin 4.4 3.2 - 4.6 gm/dL 11/03/2024 8:34 PM EDT [facility] Phosphorus 2.9 2.5 - 4.5 mg/dL 11/03/2024 8:34 PM EDT [facility] eGFR (CKD-EPIcr 2020) 73 >=60 mL/min/1.7 3 m2 11/03/2024 8:34 PM EDT [facility] Comment:Estimated GFR was ca lculated using the CKD-EPIcr (2020) equation refit without race. The equation is recommended by the National Kidney Foundation - [place] Society of Nephrology Task Force. Blood VENOUS BLOOD / Unknown Venipuncture / Unknown 11/03/2024 4:05 PM EDT 11/03/2024 4:14 PM EDT R Christoph Sharma MD CHEMISTRY ORDERABLES Final Re sult [facility] [address] [facility] , [place] [address] * (ABNORMAL) HEMOGLOBIN A1C (05/11/2024 3:27 PM EDT) Hgb A1C 9.5(H) 4.2 - 5.6 % 05/11/2024 7:58 PM EDT [facility] Est. Avg Glucose 226 mg/dL 05/11/2024 7:58 PM EDT [facility] Blood VENOUS BLOOD / Unknown Venipuncture / Unknown 05/11/2024 3:27 PM EDT 05/11/2024 3:27 PM EDT Narrative [facility] - 05/11/2024 7:58 PM EDT REFERENCE RANGE: Normal: 4.0-5.6% Pre-diabetes: 5.7-6.4% Provisional diagnosis of diabetes: >6.4% Hgb F>10% and anything which shortens red cell survival, such as hemolytic anemia, or unstable hemoglobin variants such as HbSS, HbSC, or HbCC, will lower the HbA1c value associated with a given level of glycemic control. us Peyman Carpio DPM CHEMISTRY ORDERABLES Fi nal Result [facility] [address] [facility], [place] [address] [facility] [address] [facility] [address] [place], [place] [id number] * MM MAMMO DIGITAL LIZ DIAGN BILAT (12/04/2022 10:54 AM EDT) Anatomical Region Laterality Modality Breast Bilateral Mammography 12/05/2022 8:05 AM EDT Impressions 12/05/2022 8:05 AM EDT Incomplete-need additional imaging evaluation (LHG-Hekihqnh-6) ~ RECOMMENDATION: Ultrasound of the left breast. [...] the next mammogram, in accordance with the [place] [employer] and the Society of Breast Imaging recommendations. Narrative 12/05/2022 8:05 AM EDT Procedure:MM MAMMO DIGITAL LIZ DIAGN BILAT ~ Reason for exam: clinical finding. Indicated problem(s): left breast palpable abnormality for 3 weeks. N63.20-Unspecified lump in the left breast, unspecified uskqepjn-ISC-03-CM N64.8-Lvtpekmkxk-BBT-10-CM ~ MM MAMMO DIGITAL LIZ DIAGN BILAT Bilateral CC and MLO view(s) were taken. Prior study comparison: January 04, 2021, bilateral MM MAMMO DIG SCREEN CAD BILAT, performed at [facility]. October 12, 2019, bilateral MM MAMMO DIG SCREEN CAD BILAT, performed at [facility]. The breast tissue is heterogeneously dense. This [...] weeks. N63.20-Unspecified lump in the left breast, pmuvrrzzvculmehiqpf-EEK-21-CM N64.5-Xmnvfjzzlu-NQY-10-CM ~ MM MAMMO DIGITAL LIZ DIAGN BILAT Bilateral CC and MLO view(s) were taken. Prior study comparison: January 04, 2021, bilateral MM MAMMO DIG SCREEN CAD BILAT, performed at [facility]. October 12, 2019, bilateralMM MAMMO DIG SCREEN CAD BILAT, performed at [facility]. The breast tissue is heterogeneously dense. This [...] separately. ~ IMPRESSION: Incomplete-need additional imaging evaluation (PXC-Qufeggxq-0) ~ RECOMMENDATION: Ultrasound of the left breast. [...] was entered into a reminder system with [facility] due date for the next mammogram, in accordance with the [place] [employer] and the Society of Breast Imaging recommendations. Jamal Mabry MD IMG MAMMOGRAPHY ORDERABLES Final Result * (ABNORMAL) LIPID SCREEN (04/27/2022 4:33 AM EDT) Cholesterol 208(H) <200 mg/dL 04/27/2022 2:42 PM EDT [facility] Comment: < 200 Desirable 200 - 239 Borderline High >= 240 High Triglyceride 329(H) <150 mg/dL 04/27/2022 2:42 PM EDT [facility] Comment: < 150 Normal 150 - 199 Borderline High 200 - 499 High >= 500 Very High HDL 38(L) >=40 mg/dL 04/27/2022 2:42 PM EDT [facility] Comment: > 60 Optimal 40 - 60 Acceptable < 40 Low LDL Calculated 113(H) <100 mg/dL 04/27/2022 2:42 PM EDT [facility] Comment: < 100 Optimal 100 - 129 Near or above optimal 130 - 159 Borderline High 160 - 189 High >= 190 Very High Non-HDL-C Calculated 170(H) <=129 mg/dL 04/27/2022 2:42 PM EDT [facility] Comment: <130 Desirable 130-159 Above Desirable 160-189 Borderline High 190-219 High >= 220 Very High Fasting Specimen? Yes None 022 2:42 PM EDT [facility] Blood BLOOD SAMPLE TAKEN FROM CENTRAL LINE / Unknown Venipuncture / Unknown 04/27/2022 4:33 AM EDT 04/27/2022 12:10 PM EDT Danisha Lewis MD CHEMISTRY ORDERABLES Final R esult [facility] [address] [facility], [place] [address] [facility] [address] [place] [address] * GMED COLONOSCOPY (08/13/2017 11:00 AM EST) 08/13/2017 11:0 0 AM EST Impressions [facility] - 08/13/2017 11:17 AM EST Grade 2 internal hemorrhoids. Plan: Screening Colonoscopy in 10 years. This section is an excerpt of the full report. us Raymond Ortiz MD GI PROCEDURE ORDERABLES Fin al Result [facility] [address] [place] [address] * DX BONE DENSITY AXIAL SKELETON (06/20/2011 [...] AM EST Bone densitometry was performed on [employer] No comparisons available. Patient's previous scan was [...] - 06/27/2011 Bone densitometry was performed on [employer] No comparisons available. Patient's previous scan [...] Advance Directives For more information, please contact: [phone] * Full Code (Latest Code Status on [...] 6:22 AM 04/11/2022 4:13 PM Care Teams Woodwork Salvage Inspector Relationship Specialty Start Date End Date Jamal Mabry MD PCP - General 06/18/10 Vignesh Sharma MD [address] [address] Consulting Physician Internal Medicine-Nephrology 04/09/22 Shama Buckley MD [address] [place] [address] Internal Medicine-Rheumatology 02/20/23
--- OUTSIDE RECORDS SUMMARY | 2025-01-17 19:10 | XMS_ITS | Encounter Summary ---
Author Organization [facility] [place] [place] [address] Care Team Providers Care Production Maintenance Technician Name Role Phone Jamal Mabry MD Primary Care Provider [phone] Vignesh Sharma MD Unavailable [phone] Shama Buckley MD Unavailable [phone] Encounter Details Date Type Department Care Team (Late Contact Info) Description 08/13/2017 Orders Only [facility] [address] [place] [facility] Building [address] [place] [address] Raymond Ortiz MD [address] [place] [address] Social History Tobacco Use Types Packs/Day [...] [facility] [address] [place] [address] Shama Buckley MD [address] [place] [address] 03/31/2025 2:00 PM EDT Office Visit [facility] Nephrology [place] [address] [facility] [place] [address] Vignesh Sharma MD [address] [facility] [address] [place] [address] documented as of this encounter Procedures Procedure Name Priority Date/Time Associated Diagnosis Comments GMED COLONOSCOPY Routine 08/13/2017 11:0 0 AM EST documented in this encounter Results * GMED COLONOSCOPY (08/13/2017 11:00 AM EST) 08/13/2017 11:0 0 AM EST Impressions [facility] - 08/13/2017 11:17 AM EST Grade 2 internal hemorrhoids. Plan: Screening Colonoscopy in 10 years. This section is an excerpt of the full report. us Raymond Ortiz MD GI PROCEDURE ORDERABLES Fin al Result [facility] 1 [place] [address] documented in this encounter Visit Diagnoses Not on filedocumented in this encounter Additional Health Concerns Infection Onset Date Last Indicated Resolved Time R/O COVID-19 04/25/2022 04/25/2022 04/25/2022 9:51 AM EDT R/O COVID-19 05/17/2022 05/17/2022 05/17/2022 11:2 5 PM EDT documented as of this encounter Care Teams Production Maintenance Technician Relationship Specialty Start Date End Date Jamal Mabry MD PCP - General 06/18/10 Vignesh Sharma MD [address] [facility] [address] [place] [address] Consulting Physician Internal Medicine-Nephrology 04/09/22 Shama Buckley MD [address] [place] [address] Internal Medicine-Rheumatology 02/20/23 documented as of this encounter
--- OUTSIDE RECORDS SUMMARY | 2025-01-17 19:10 | XMS_ITS | Clinical Summary ---
Author Organization [facility] Address [address] [facility] [place] [address] Phone Care Team Providers Care Grounds Restoration Specialist Name Role Phone Carlyn JARAMILLO, [facility] Conditions or Problems Problem Name Problem Code Onset Date Status Entry Date Provider Comment Standard Description Annotate FOLLOW-UP EXAMINATION FOLLOWING OTHER SURGERY Z09 (ICD-10-CM) 10/13 Active 10/13 Marietta Hale MA Encounter for follow-up examination after completed treatment for conditions other than malignant neoplasm LUMBAR RADICULOPATHY [id number] (SNOMED CT) 09/06 Active 09/06 Alta Rodriguez MA Lumbar radiculopathy Medications Medication Instructions Start Date Stop Date Generic Name [facility] Provider HIBICLENS 4 % EXTERNAL LIQUID Wash the lower back and right buttock area the night prior to the surgery CHLORHEXIDINE GLUCONATE [id number] Wild Alcocer MD ADULT ASPIRIN LOW STRENGTH 81 MG ORAL TABLET DISINTEGRATING 1 daily Non-Sanchez ASPIRIN [id number] Alta Rodriguez MA SYNTHROID 50 MCG TABS 1 daily Non-Sanchez LEVOTHYROXINE SODIUM [id number] Alta Rodriguez MA FOLIC ACID 1 MG TABS 1 bid Non-Sanchez FOLIC ACID [id number] Alta Rodriguez MA PROTONIX 40 MG TBEC 1 daily Non-Sanchez PANTOPRAZOLE SODIUM [id number] Alta Rodriguez MA GEMFIBROZIL 600 MG TABS 1 bid Non-Sanchez GEMFIBROZIL [id number] Alta Rodriguez MA METOPROLOL TARTRATE 100 MG TABS 1 daily Non-Sanchez METOPROLOL TARTRATE [id number] Alta Rodriguez MA NORVASC 10 MG TABS 1 daily Non-Sanchez AMLODIPINE BESYLATE 42327114301 Alta Rodriguez MA METHOTREXATE 2.5 MG ORAL TABLET 1 per week -Sanchez METHOTREXATE SODIUM 12089154804 Alta Rodriguez MA GABAPENTIN 800 MG TABS 1 qid -Sanchez GABAPENTIN [id number] Alta Rodriguez MA TIZANIDINE HCL 2 MG TABS 1 tid -Sanchez TIZANIDINE HCL [id number] Alta Rodriguez MA CYMBALTA 60 MG CPEP 1 bid -Sanchez DULOXETINE HCL 41108675291 Alta Rodriguez MA CELEBREX 200 MG CAPS 1 daily -Sanchez CELECOXIB [id number] Alta Rodriguez MA ENDOCET 10-325 MG TABS 1 qid -Sanchez OXYCODONE-ACETAM INOPHEN [id number] Alta Rodriguez MA Medications Administered No information [...]
--- OUTSIDE RECORDS SUMMARY | 2025-01-17 19:11 | XMS_ITS | Referral Summary ---
Author Organization [facility] Address [address] [place] [address] [place] [address] Care Team Providers Care Business Office Director Name Role Phone Unavailable Primary Care Provider [...]
--- OUTSIDE RECORDS SUMMARY | 2025-01-17 19:11 | XMS_ITS | Encounter Summary ---
Author Organization [facility] Address [address] [facility] [address] [place] [address] Care Team Providers Care Ground Helper [employer] Railway Name Role Phone Jamal Mabry MD Primary Care Provider Vignesh Sharma MD Unavailable [phone] Shama Buckley MD Unavailable [phone] Reason for Visit * Reason Comments Medication Refill Encounter Details Date Type Department Care Team (Late st Contact Info) Description 12/22/2024 Refill [facility] Nephrology [place] [address] [facility] [address] [place] [address] Vignesh Sharma MD [address] [facility] [address] [place] [address] Medication Refill Social History Tobacco Use Types [...] [facility] [address] [place] [address] Shama Buckley MD [address] [place] [address] 03/31/2025 2:00 PM EDT Office Visit [facility] Nephrology [place] [address] [facility] [place] [address] Vignesh Sharma MD [address] [address] documented as of this encounter Visit Diagnoses [...] as of this encounter Care Teams Ground Hel[address] Railway Relationship Specialty Start Date End Date Jamal Mabry MD PCP - General 06/18/10 Vignesh Sharma MD [address] [address] Consulting Physician Internal Medicine-Nephrology 04/09/22 Shama Buckley MD [address] [place] [address] Internal Medicine-Rheumatology 02/20/23 documented as of this encounter
--- OUTSIDE RECORDS SUMMARY | 2025-01-17 19:11 | XMS_ITS ---
Author Organization [facility] Address [address] [place] [address] Care Team Providers Care Waste Specialist Name Role Phone Jamal Mabry MD Primary Care Provider [phone] Active Problems Problem Noted Date Diagnosed Date [...] <0.5; CA 125: 3454; Lipase: 29 -(03/27/15) Public Health Clinical Nurse Specialist/onc office visit: plan for paracentesis in office [...] Medications Discontinue Reason Plan Provider Cycles OP Public Health Clinical Nurse Specialist CARBOplatin AUC 5 / DOCEtaxel 04/05/20 15 07/21/2017 CARBOplatin (PARAPLATIN) chemo infusion (by AUC)DOCEtaxel ([id number]) chemo infusionDOCEtaxel (TAXOTERE)DOCEtaxeL (TAXOTERE) SolnPACLItaxel (TAXOL) chemo [...]
--- OUTSIDE RECORDS SUMMARY | 2025-01-17 19:11 | XMS_ITS ---
Author Organization [facility] Address [address] [place] [address] Phone Care Team Providers Care Credit And Collections Analyst Name Role Phone Jamal Mabry MD Primary Care Provider [phone] Vignesh Sharma MD Unavailable [phone] Shama Buckley MD Unavailable [phone] Active Problems Problem Noted Date Diagnosed Date Localized edema 03/25/2024 Recurrent ventral hernia 08/22/2022 Overview (08/22/2022): Added automatically from request for surgery [id number] Hyperkalemia 07/22/2022 Hypercalcemia 07/16/2022 Vitamin B12 deficiency [...] <0.5; CA 125: 3454; Lipase: 29 -(03/27/15) Gunner Mate/onc office visit: plan for paracentesis in office [...]
--- OUTSIDE RECORDS SUMMARY | 2025-01-17 19:11 | XMS_ITS | Encounter Summary ---
Author Organization [facility] Address [address] [place] [address] Care Team Providers Care Chinese Language Professor Name Role Phone Jamal Mabry MD Primary Care Provider [phone] Vignesh Sharma MD Unavailable [phone] Shama Buckley MD Unavailable [phone] Reason for Visit * Reason Onset Date Comments Medication Refill 11/30/2024 Duloxetine 60m g Encounter Details Date Type Department Care Team (Late st Contact Info) Description 11/30/2024 Telephone [facility] [address] [place] [address] Carmela Kendrick MA Medication Refill (Duloxetine 60mg) [...] Miscellaneous Notes * Addendum Note - Carmela eKndrick MA - 12/07/2024 1:57 PM EDTAddended by: [...] Visit [facility] [address] [place] [address] Shama Buckley MD [address] [place] [address] 03/31/2025 2:00 PM EDT Office Visit [facility] Nephrology [place] [address] [facility] [place] [address] Vignesh Sharma MD [address] [address] documented as of this encounter [...] documented as of this encounter Care Teams Chinese Language Professor Relationship Specialty Start Date End Date Jamal Mabry MD PCP - General 06/18/10 Vignesh Sharma MD [address] [address] Consulting Physician Internal Medicine-Nephrology 04/09/22 Shama Buckley MD [address] [place] [address] Internal Medicine-Rheumatology 02/20/23 documented as of this encounter
--- OUTSIDE RECORDS SUMMARY | 2025-01-17 19:11 | XMS_ITS | Encounter Summary ---
Author Organization [facility] Address [address] [facility] [address] [place] [address] Care Team Providers Care Ballistics Expert Forensic Name Role Phone Jamal Mabry MD Primary Care Provider Vignesh Sharma MD Unavailable [phone] Shama Buckley MD Unavailable [phone] Reason for Visit * Reason Comments Medication Refill Encounter Details Date Type Department Care Team (Late st Contact Info) Description 11/26/2024 Refill [facility] [address] [address] Vignesh Sharma MD [address] [facility] [address] [place], [place] [id number] Medication Refill Social History Tobacco Use Types [...] Visit [facility] [address] [place] [address] Shama Buckley MD [address] [place] [address] 03/31/2025 2:00 PM EDT Office Visit [facility] Nephrology [place] [address] [facility] [place] [address] Vignesh Sharma MD [address] [address] documented as of this encounter [...] documented as of this encounter Care Teams Ballistics Expert Forensic Relationship Specialty Start Date End Date Jamal Mabry MD PCP - General 06/18/10 Vignesh Sharma MD [address] [address] Consulting Physician Internal Medicine-Nephrology 04/09/22 Shama Buckley MD [address] [place] [address] Internal Medicine-Rheumatology 02/20/23 documented as of this encounter
--- OUTSIDE RECORDS SUMMARY | 2025-01-17 19:11 | XMS_ITS | Encounter Summary ---
Author Organization [facility] Address [address] [place] [address] Care Team Providers Care Bank Boss Name Role Phone Jamal Mabry MD Primary Care Provider [phone] Vignesh Sharma MD Unavailable [phone] Shama Buckley MD Unavailable [phone] Reason for Visit * Reason Onset Date Comments Advice Only 01/04/2025 Encounter Details Date Type Department Care Team (Late st Contact Info) Description 01/04/2025 Telephone [facility] [place] [facility] [address] [place] [address] Theresa Gross MA Advice Only Social History [...] center, [place] [facility] [address] [place] [address] Shama Buckley MD [address] [place] [address] 03/31/2025 2:00 PM EDT Office Visit [facility] Nephrology [place] [address] [place] [address] Vignesh Sharma MD [address] [place] [address] documented as of this encounter Visit Diagnoses Not on filedocumented in this encounter Additional Health Concerns Assessment Noted Time A fall risk assessment has been complete d for the patient 06/11/2022 10:35 AM EDT documented as of this encounter Care Teams Bank Boss Relationship Specialty Start Date End Date Jamal Mabry MD PCP - General 06/18/10 Vignesh Sharma MD [address] [place] [address] Consulting Physician Internal Medicine-Nephrology 04/09/22 Shama Buckley MD [address] [place] [address] Internal Medicine-Rheumatology 02/20/23 documented as of this encounter
[2025-01-17 19:52] LABS: Microalbumin/Creatinine Ratio 7.2
[2025-01-17 19:56] LABS: Albumin Level 4.4 g/dl (3.5-5.0); Chloride 104 mmol/L (98-107); Sodium 139 mmol/L (136-145)
[2025-01-17 19:57] LABS: Potassium 4.9 mmoL/L (3.5-5.1)
[2025-01-17 19:59] LABS: Alanine Aminotransferase 23 U/L (12-78); Alkaline Phosphatase 72 U/L (38-126); Anion Gap 9.9 mEq/L (5-15); Aspartate Amino Transferase 32 U/L (14-36); Bilirubin,Total 0.3 mg/dl (0.2-1.3); Blood Urea Nitrogen 30 mg/dl (7-17); Carbon Dioxide 30 mmol/L (22.0-30.0); Estimated Glomerular Filt Rate 61 ml/min (>60); GFR (African American) 74 ML/MIN (>60)
[2025-01-17 20:00] LABS: Albumin/Globulin Ratio 1.6 (1.1-1.8); Calcium 9.9 mg/dl (8.4-10.2); Globulin 2.7 g/dL (1.3-3.2); Glucose 85 mg/dl (74-100); Total Protein,Serum 7.1 g/dl (6.3-8.2)
[2025-01-17 20:12] LABS: Creatinine,Urine Random 103 mg/dL (Not Estab.)
[2025-01-17 21:43] LABS: Hemoglobin A1C 6.8 % (4.0-6.0)
== END 2025-01-17 23:59 | disposition home or self-care (01) ==
LOC: LAB.DROPOF 19:08
PROVIDERS: PCP Family Medicine; Visit Provider Family Medicine
DX: N39.0 Urinary tract infection, site not specified (principal); A49.9 Bacterial infection, unspecified; E03.9 Hypothyroidism, unspecified; I10 Essential (primary) hypertension; E11.69 Type 2 diabetes mellitus with other specified complication
CPT/HCPCS: 82043; 82570